=== PATIENT | female | born 1995 | race Caucasian/White ===

== ENCOUNTER 2016-10-15 02:57 | Emergency (ER) | payer MEDICAID ==
--- NOTE | 2016-10-15 04:02 | ER Document Report ---
ED GI/ - General Chief Complaint: Abdominal Cramping Stated Complaint: CRAMPING Mode of Arrival: Ambulatory Information source: Patient Notes: Patient is a 20-year-old female A1 approximately 9 weeks who presents to the ER today for abdominal cramping and lower abdomen, dizziness, lightheadedness and migraines 3 days. She denies any vaginal discharge, bleeding. She states that she is a high-risk because she had a stillbirth for her first . She has an appointment with her OB/ [facility] next week. TRAVEL OUTSIDE OF THE [place] IN LAST 30 DAYS: No - Related Data Allergies/Adverse Reactions: acetaminophen [From Percocet] Adverse Reaction (Mild, Verified 10/15/16 03:01) Nightmares oxycodone [From Percocet] Adverse Reaction (Mild, Verified 10/15/16 03:01) Nightmares Past Medical History - General Information source: Patient - Social History Smoking Status: Never Smoker Chew tobacco use (# tins/day): No Frequency of alcohol use: None Drug Abuse: None Family History: None Patient has suicidal ideation: No Patient has homicidal ideation: No Renal/ Medical History: Denies: Hx Peritoneal Dialysis Psychiatric Medical History: Denies: Hx Depression Past Surgical History: Reports: Hx Oral Surgery - wisdom teeth - Immunizations Immunizations up to date: Yes Hx Diphtheria, Pertussis, Tetanus Vaccination: Yes Review of Systems - Review of Systems Constitutional: No symptoms reported EENT: No symptoms reported Cardiovascular: No symptoms reported Respiratory: No symptoms reported Gastrointestinal: No symptoms reported Genitourinary: No symptoms reported Female Genitourinary: See HPI Musculoskeletal: No symptoms reported Skin: No symptoms reported Hematologic/Lymphatic: No symptoms reported Neurological/Psychological: See HPI Physical Exam - Vital signs Vitals: Temp Pulse Resp BP Pulse Ox 98.0 F 102 H 16 136/64 H 97 10/15/16 03:03 10/15/16 03:03 10/15/16 03:03 10/15/16 03:03 10/15/16 03:03 - Notes Notes: PHYSICAL EXAMINATION: GENERAL: Well-appearing and in no acute distress. HEAD: Atraumatic, normocephalic. EYES: Pupils equal round and reactive to light, extraocular movements intact, sclera anicteric, conjunctiva are normal. NECK: Normal range of motion, supple without lymphadenopathy LUNGS: CTAB and equal. No wheezes rales or rhonchi. HEART: Regular rate and rhythm without murmurs ABDOMEN: Soft, mild suprapubic tenderness. No guarding, no rebound BACK: no vertebral tenderness, normal ROM GI/: no CVA tenderness EXTREMITIES: Normal range of motion, no pitting edema. No cyanosis. NEUROLOGICAL: Cranial nerves grossly intact. Normal sensory/motor exams. PSYCH: Normal mood, normal affect. SKIN: Warm, Dry, normal turgor, no rashes or lesions noted Course - Re-evaluation Re-evalutation: 10/15/16 06:13 Patient's labwork is unremarkable today except for an elevated white blood cell count 16. I do not have any explanation for this as patient is afebrile with normal urinalysis, no sick symptoms such as cough, runny nose, no tenderness to abdomen except for some mild suprapubic tenderness which she only verbalized, did not even wince when I pressed on her abdomen. She appears very well, smiling, laughing and conversing with me in the room. Ultrasound reveals a 9 week and 5 day gestation intrauterine living with a heart rate of 175 bpm. No subchorionic hemorrhage or abnormality is noted. Patient's hemoglobin is normal. I have no expiration for her dizziness or lightheadedness except that it can be normal in . She will follow-up with her primary care provider next week I have advised her to tell them about this. She is taking her vitamins. - Vital Signs Vital signs: Temp Pulse Resp BP Pulse Ox 98.0 F 102 H 16 136/64 H 97 10/15/16 03:03 10/15/16 03:03 10/15/16 03:03 10/15/16 03:03 10/15/16 03:03 - Laboratory Result Diagrams: 10/15/16 04:00 10/15/16 04:00 Laboratory results interpreted by me: 10/15/16 10/15/16 04:00 04:00 WBC 16.0 H RDW 14.2 H Seg Neutrophils % 81.5 H Absolute Neutrophils 13.0 H Beta HCG, Quant 172182.00 H Discharge - Discharge Clinical Impression: Abdominal cramping affecting , Lightheadedness Condition: Stable Disposition: HOME, SELF-CARE Additional Instructions: Abdominal cramping, lightheadedness and dizziness and even headaches are all normal symptoms in . Please drink plenty of water and if you can purchase a blood pressure cuff to monitor your blood pressure at home. Blood pressure should not go below 100 as the top number, otherwise this may be causing your dizziness, lightheadedness. Take tylenol for the headaches. Return immediately for any new or worsening symptoms. Follow up with [facility], call tomorrow to make followup appointment. Referrals: [facility] [Provider Group] - Follow up as needed
[2016-10-15 04:26] LABS: APPEARANCE,URINE SLIGHTLY-CLOUDY; BILIRUBIN,URINE NEGATIVE (NEGATIVE); GLUCOSE, URINE NEGATIVE (NEGATIVE); KETONES,URINE NEGATIVE (NEGATIVE); LEUKOCYTE ESTERASE,URINE NEGATIVE (NEGATIVE); NITRITE,URINE NEGATIVE (NEGATIVE); PROTEIN,URINE NEGATIVE (NEGATIVE); URINE SPECIFIC GRAVITY 1.019; UROBILINOGEN,URINE NEGATIVE mg/dL (<2.0)
[2016-10-15 04:28] LABS: ABSOLUTE EOSINOPHILS # (AUTO) 0.1 10^3/uL (0.0-0.6); ABSOLUTE LYMPHOCYTES (AUTO) 2.1 10^3/uL (0.5-4.7); ABSOLUTE MONOCYTES (AUTO) 0.7 10^3/uL (0.1-1.4); BASOPHILS % (AUTO) 0.2 % (0-2); EOSINOPHILS % (AUTO) 0.6 % (0-6); HEMATOCRIT 37.3 % (36.0-47.0); HEMOGLOBIN 12.5 g/dL (12.0-15.5); HGB HCT DIFFERENCE 0.2; MEAN CORPUSCULAR HEMOGLOBIN 29.9 pg (27.0-33.4); MEAN CORPUSCULAR HGB CONC 33.5 g/dL (32.0-36.0); MEAN CORPUSCULAR VOLUME 89 fl (80-97); MONOCYTES % (AUTO) 4.7 % (3-13); RED BLOOD COUNT 4.17 10^6/uL (3.72-5.28); RED CELL DISTRIBUTION WIDTH 14.2 % (11.5-14.0); SEGMENTED NEUTROPHILS % (AUTO) 81.5 % (42-78)
[2016-10-15 04:35] LABS: ALANINE AMINOTRANSFERASE 22 U/L (5-35); ALBUMIN 4.2 g/dL (3.7-5.6); ALKALINE PHOSPHATASE 66 U/L (50-135); ANION GAP 12 (5-19); ASPARTATE AMINO TRANSFERASE 18 U/L (5-30); BILIRUBIN,TOTAL 0.3 mg/dL (0.2-1.3); BLOOD UREA NITROGEN 10 mg/dL (7-20); CALCIUM 9.3 mg/dL (8.4-10.2); CARBON DIOXIDE 24 mmol/L (22-30); CHLORIDE 104 mmol/L (98-107); CREATININE RESULT 0.54 mg/dL (0.52-1.25); GLUCOSE 93 mg/dL (75-110); POTASSIUM 3.7 mmol/L (3.6-5.0); SODIUM 139.6 mmol/L (137-145)
[2016-10-15 06:31] VITALS: BP 122/63
== END 2016-10-15 06:29 | disposition home or self-care (01) ==
LOC: ER 02:57
DX: O26.91 Pregnancy related conditions, unspecified, first trimester (principal); R42 Dizziness and giddiness; R10.30 Lower abdominal pain, unspecified; G43.909 Migraine, unspecified, not intractable, without status migrainosus; Z3A.09 9 weeks gestation of pregnancy; Z88.6 Allergy status to analgesic agent
CPT/HCPCS: 36415; 76801; 80053; 81001; 84702; 85025; 99284

== ENCOUNTER 2016-11-03 12:35 | Emergency (ER) | payer MEDICAID ==
--- NOTE | 2016-11-03 12:40 | ER Document Report ---
ED Medical Screen (RME) - General Stated Complaint: FEVER/VOMITING Notes: patient is a 20 year old female who is 12 weeks complaining of fever, vomiting, dizzyness and syncope blood type unknown denies vaginal bleeding, admits to minor abdominal cramping mild tachy at 116, normotensive, afebrile (did not take any apap today) I have greeted and performed a rapid initial assessment of this patient. A comprehensive ED assessment and evaluation of the patient, analysis of test results and completion of the medical decision making process will be conducted by additional ED providers. TRAVEL OUTSIDE OF THE [place] IN LAST 30 DAYS: No - Related Data Allergies/Adverse Reactions: acetaminophen [From Percocet] Adverse Reaction (Mild, Verified 10/15/16 03:01) Nightmares oxycodone [From Percocet] Adverse Reaction (Mild, Verified 10/15/16 03:01) Nightmares Past Medical History Renal/ Medical History: Denies: Hx Peritoneal Dialysis Psychiatric Medical History: Denies: Hx Depression Past Surgical History: Reports: Hx Oral Surgery - wisdom teeth - Immunizations Immunizations up to date: Yes Hx Diphtheria, Pertussis, Tetanus Vaccination: Yes
[2016-11-03 13:08] LABS: ABSOLUTE LYMPHOCYTES (AUTO) 0.3 10^3/uL (0.5-4.7); ABSOLUTE MONOCYTES (AUTO) 0.4 10^3/uL (0.1-1.4); ABSOLUTE NEUT (AUTO) 3.7 10^3/uL (1.7-8.2); BASOPHILS % (AUTO) 0.5 % (0-2); EOSINOPHILS % (AUTO) 0.2 % (0-6); HEMATOCRIT 35.2 % (36.0-47.0); HEMOGLOBIN 12.3 g/dL (12.0-15.5); HGB HCT DIFFERENCE 1.7; LYMPHOCYTES % (AUTO) 6.4 % (13-45); MEAN CORPUSCULAR HEMOGLOBIN 30.8 pg (27.0-33.4); MEAN CORPUSCULAR HGB CONC 34.9 g/dL (32.0-36.0); MEAN CORPUSCULAR VOLUME 88 fl (80-97); MONOCYTES % (AUTO) 9.6 % (3-13); RED BLOOD COUNT 3.99 10^6/uL (3.72-5.28); RED CELL DISTRIBUTION WIDTH 14.3 % (11.5-14.0); SEGMENTED NEUTROPHILS % (AUTO) 83.3 % (42-78); WHITE BLOOD COUNT 4.5 10^3/uL (4.0-10.5)
[2016-11-03 13:13] LABS: APPEARANCE,URINE SLIGHTLY-CLOUDY; BILIRUBIN,URINE NEGATIVE (NEGATIVE); GLUCOSE, URINE NEGATIVE (NEGATIVE); KETONES,URINE 80 mg/dL (NEGATIVE); LEUKOCYTE ESTERASE,URINE NEGATIVE (NEGATIVE); NITRITE,URINE NEGATIVE (NEGATIVE); PROTEIN,URINE 30 mg/dL (NEGATIVE); URINE SPECIFIC GRAVITY 1.025; UROBILINOGEN,URINE NEGATIVE mg/dL (<2.0)
--- NOTE | 2016-11-03 13:20 | EKG REPORT ---
SEVERITY:- NORMAL ECG - SINUS RHYTHM : Confirmed by: August Razo MD 03-Nov-2016 13:20:09
[2016-11-03 13:33] LABS: ALANINE AMINOTRANSFERASE 30 U/L (5-35); ALBUMIN 4.2 g/dL (3.7-5.6); ALKALINE PHOSPHATASE 61 U/L (50-135); ANION GAP 12 (5-19); ASPARTATE AMINO TRANSFERASE 22 U/L (5-30); BILIRUBIN,TOTAL 0.4 mg/dL (0.2-1.3); BLOOD UREA NITROGEN 7 mg/dL (7-20); CALCIUM 9.5 mg/dL (8.4-10.2); CARBON DIOXIDE 21 mmol/L (22-30); CHLORIDE 103 mmol/L (98-107); CREATININE RESULT 0.52 mg/dL (0.52-1.25); GLUCOSE 87 mg/dL (75-110); POTASSIUM 4.5 mmol/L (3.6-5.0); SODIUM 135.9 mmol/L (137-145); TOTAL PROTEIN 7.3 g/dL (6.3-8.2)
[2016-11-03] MEDS ORDERED: NORMAL SALINE 1000 ML 1,000 ML IV ONE (14:26)
--- NOTE | 2016-11-03 14:26 | ER Document Report ---
ED GI/ - General Time seen by provider: 15:00 Mode of Arrival: Ambulatory Information source: Patient TRAVEL OUTSIDE OF THE [place] IN LAST 30 DAYS: No - HPI Patient complains to provider of: Abdominal pain, Vomiting Onset: Other - see HPI note Quality of pain: Cramping Associated symptoms: Fever, Vomiting, Other - cough <MARJORIE GALVAN - Last Filed: 11/03/16 16:50> <ANNAMARIA PROCTOR - Last Filed: 11/03/16 22:57> - General Chief Complaint: Nausea/Vomiting Stated Complaint: FEVER/VOMITING Notes: Patient is a 20-year-old female presenting emergency department with complaints of vomiting, fever, and cough. Patient is approximately 12 weeks . Patient states that she is vomiting every time she coughs deeply. Patient has some slight abdominal cramping but no vaginal bleeding. Patient states that she is hungry but cannot keep anything down due to her vomiting. Patient states that she had a fever of 102.3 F and also states that she "passed out at work yesterday." Patient states that she smokes occasionally but has not recently. Patient also states that she was told she had asthma when she was 14 but has not had any major complications with this. Patient is allergic to acetaminophen and oxycodone. (MARJORIE GALVAN) - Related Data Allergies/Adverse Reactions: acetaminophen [From Percocet] Adverse Reaction (Mild, Verified 11/03/16 12:38) Nightmares oxycodone [From Percocet] Adverse Reaction (Mild, Verified 11/03/16 12:38) Nightmares Past Medical History - General Information source: Patient - Social History Smoking Status: Current Some Day Smoker Chew tobacco use (# tins/day): No Frequency of alcohol use: None Drug Abuse: None Family History: None Patient has suicidal ideation: No Patient has homicidal ideation: No Past Surgical History: Reports: Hx Oral Surgery - wisdom teeth - Immunizations Immunizations up to date: Yes Hx Diphtheria, Pertussis, Tetanus Vaccination: Yes <MARJORIE GALVAN - Last Filed: 11/03/16 16:50> Review of Systems - Review of Systems Constitutional: See HPI, Fever, Malaise EENT: No symptoms reported Cardiovascular: See HPI, Lightheaded Respiratory: See HPI, Cough, Wheezing Gastrointestinal: See HPI, Nausea, Vomiting Genitourinary: No symptoms reported Female Genitourinary: No symptoms reported. denies: Vaginal bleeding Musculoskeletal: No symptoms reported Skin: No symptoms reported Hematologic/Lymphatic: No symptoms reported Neurological/Psychological: No symptoms reported -: Yes All other systems reviewed and negative <MARJORIE GALVAN - Last Filed: 11/03/16 16:50> Physical Exam - Vital signs Interpretation: Normal - General General appearance: Appears well, Alert In distress: Mild - HEENT Head: Normocephalic, Atraumatic Eyes: Normal Pupils: PERRL Mucous membranes: Moist - Respiratory Respiratory status: No respiratory distress Chest status: Nontender Breath sounds: Nonproductive cough, Wheezing - Wheezing with forced expiration or cough Chest palpation: Normal - Cardiovascular Rhythm: Regular Heart sounds: Normal auscultation Murmur: No - Abdominal Inspection: Normal Distension: No distension Bowel sounds: Normal Tenderness: Nontender Organomegaly: No organomegaly - Back Back: Normal, Nontender - Extremities General upper extremity: Normal inspection, Normal ROM, Normal strength General lower extremity: Normal inspection, Normal ROM, Normal strength - Neurological Neuro grossly intact: Yes Cognition: Normal Orientation: AAOx4 Juan Coma Scale Eye Opening: Spontaneous Juan Coma Scale Verbal: Oriented Juan Coma Scale Motor: Obeys Commands Juan Coma Scale Total: 15 Speech: Normal - Psychological Associated symptoms: Normal affect, Normal mood - Skin Skin Temperature: Warm Skin Moisture: Dry <MARJORIE GALVAN - Last Filed: 11/03/16 16:50> <ANNAMARIA PROCTOR - Last Filed: 11/03/16 22:57> - Vital signs Vitals: Temp Pulse Resp BP Pulse Ox 98.9 F 116 H 16 118/70 98 11/03/16 12:39 11/03/16 12:39 11/03/16 12:39 11/03/16 12:39 11/03/16 12:39 (MARJORIE GALVAN) (ANNAMARIA PROCTOR) Course - Laboratory Result Diagrams: 11/03/16 12:55 11/03/16 12:55 <MARJORIE GALVAN - Last Filed: 11/03/16 16:50> - Laboratory Result Diagrams: 11/03/16 12:55 11/03/16 12:55 - Diagnostic Test Radiology reviewed: Reports reviewed <ANNAMARIA PROCTOR - Last Filed: 11/03/16 22:57> - Re-evaluation Re-evalutation: 11/03/16 Patient with bronchospasm. Improved after nebulizer treatment and steroids. No acute findings on chest x-ray or blood work. Patient appears well. Ultrasound showing a 12 week . Patient is tolerating by mouth and feels much better. Stable for discharge home. Follow-up with [facility]. Return if any worsening or concerning symptoms. Understands agrees with plan. ( ANNAMARIA PROCTOR) - Vital Signs Vital signs: Temp Pulse Resp BP Pulse Ox 99.3 F 96 H 18 106/50 L 96 11/03/16 17:03 11/03/16 17:03 11/03/16 17:03 11/03/16 17:03 11/03/16 17:03 (MARJORIE GALVAN) (ANNAMARIA PROCTOR) - Laboratory Laboratory results interpreted by me: 11/03/16 11/03/16 11/03/16 12:55 12:55 13:00 Hct 35.2 L RDW 14.3 H Seg Neutrophils % 83.3 H Lymphocytes % 6.4 L Absolute Lymphocytes 0.3 L Sodium 135.9 L Carbon Dioxide 21 L Beta HCG, Quant 62750.00 H Urine Protein 30 H Urine Ketones 80 H (MARJORIE GALVAN) (ANNAMARIA PROCTOR) Discharge <MARJORIE GALVAN - Last Filed: 11/03/16 16:50> <ANNAMARIA PROCTOR - Last Filed: 11/03/16 22:57> - Discharge Clinical Impression: Bronchospasm Nausea and vomiting Qualifiers: Vomiting type: unspecified Vomiting Intractability: non-intractable Qualified Code(s): R11.2 - Nausea with vomiting, unspecified Upper respiratory infection Qualifiers: URI type: unspecified URI Qualified Code(s): J06.9 - Acute upper respiratory infection, unspecified Qualifiers: Weeks of gestation: 12 weeks Qualified Code(s): Z3A.12 - 12 weeks gestation of Condition: Stable Disposition: HOME, SELF-CARE Instructions: Upper Respiratory Illness ([facility]), Vomiting ([facility]) Prescriptions: Albuterol Sulfate [Proair HFA Inhalation Aerosol 8.5 gm MDI] 2 puff IH Q4H PRN # 1 mdi PRN Reason: Prednisone [Deltasone 20 mg Tablet] 1 tab PO DAILY 4 Days Forms: Smoking Cessation Education, Return to Work Referrals: DECLAN BOBO MD [Primary Care Provider] - Follow up as needed Scribe Attestation: 11/03/16 22:57 I personally performed the services described in the documentation, reviewed and edited the documentation which was dictated to the scribe in my presence, and it accurately records my words and actions. (ANNAMARIA PROCTOR) Scribe Documentation - Scribe Written by [employer]:: Marjorie Galvan 11/03/16 16:22 acting as scribe for :: Evangelina <MARJORIE GALVAN - Last Filed: 11/03/16 16:50>
[2016-11-03] MEDS ORDERED: FAMOTIDINE INJ/PF 20 MG/2 ML SDV IV ONE (15:05)
[2016-11-03] MEDS ORDERED: METOCLOPRAMIDE HCL INJ/PF 10 MG/2 ML SDV IV ONE (15:05)
[2016-11-03] MEDS ORDERED: METHYLPREDNISOLONE INJ 125 MG/2 ML SDV IV ONE (15:06)
[2016-11-03] MEDS ORDERED: RINGERS SOLUTION,LACTATED 1,000 ML IV ONE (15:40)
[2016-11-03] MEDS ORDERED: ALBUTEROL SULFATE HFA (90 MCG/PUFF) 8 GM MDI (1 MDI/ER DISP) IH ONE (16:23)
[2016-11-03 17:04] VITALS: BP 106/50
== END 2016-11-03 17:04 | disposition home or self-care (01) ==
LOC: ER 12:35
DX: O26.891 Other specified pregnancy related conditions, first trimester (principal); J06.9 Acute upper respiratory infection, unspecified; J98.01 Acute bronchospasm; O21.9 Vomiting of pregnancy, unspecified; Z3A.12 12 weeks gestation of pregnancy; Z88.6 Allergy status to analgesic agent
CPT/HCPCS: 93005; 99284; 96374; 96375; 86900; 86901; 36415; 84702; 85025; 80053; 81001; 87804; 71020; 76801; 93010; J2930; J2765; J7030; S0028; J3490

== ENCOUNTER 2016-12-28 18:28 | Emergency (ER) | payer MEDICAID ==
[2016-12-28] MEDS ORDERED: ONDANSETRON 4 MG TAB.RAPDIS PO ONE (18:48)
[2016-12-28] MEDS ORDERED: DIPHENHYDRAMINE HCL 50 MG CAPSULE PO ONE (18:48)
[2016-12-28] MEDS ORDERED: PROCHLORPERAZINE MALEATE 10 MG TABLET PO ONE (18:48)
[2016-12-28] MEDS ORDERED: METOCLOPRAMIDE HCL 10 MG TABLET PO ONE (18:50)
--- NOTE | 2016-12-28 18:50 | ER Document Report ---
ED Medical Screen (RME) - General Chief Complaint: Headache >24 hrs old Stated Complaint: FLU LIKE SYMPTOMS Notes: This 21-year-old female patient comes emergency room with a 5 day history of bitemporal and forehead headache. She has had some nausea and vomiting for the past 2 days. She has also had some coughing the past 2 days. Her blood pressure is little elevated today, she reports it has been high throughout the and they are watching it but have not started to treat it. I have greeted and performed a rapid initial assessment of this patient. A comprehensive ED assessment and evaluation of the patient, analysis of test results and completion of the medical decision making process will be conducted by additional ED providers. TRAVEL OUTSIDE OF THE [place] IN LAST 30 DAYS: No - Related Data Allergies/Adverse Reactions: acetaminophen [From Percocet] Adverse Reaction (Mild, Verified 12/28/16 18:30) Nightmares oxycodone [From Percocet] Adverse Reaction (Mild, Verified 12/28/16 18:30) Nightmares Past Medical History Renal/ Medical History: Denies: Hx Peritoneal Dialysis Psychiatric Medical History: Denies: Hx Depression Past Surgical History: Reports: Hx Oral Surgery - wisdom teeth - Immunizations Immunizations up to date: Yes Hx Diphtheria, Pertussis, Tetanus Vaccination: Yes Physical Exam - Vital signs Vitals: Temp Pulse Resp BP Pulse Ox 98.9 F 116 H 16 140/79 H 99 12/28/16 18:33 12/28/16 18:33 12/28/16 18:33 12/28/16 18:33 12/28/16 18:33 Course - Vital Signs Vital signs: Temp Pulse Resp BP Pulse Ox 98.9 F 116 H 16 140/79 H 99 12/28/16 18:33 12/28/16 18:33 12/28/16 18:33 12/28/16 18:33 12/28/16 18:33
[2016-12-28] MEDS ORDERED: NORMAL SALINE 1000 ML 1,000 ML IV ONE (19:16)
[2016-12-28 19:20] LABS: AMORPHOUS SEDIMENT,URINE TRACE /HPF; APPEARANCE,URINE CLOUDY; BILIRUBIN,URINE NEGATIVE (NEGATIVE); GLUCOSE, URINE NEGATIVE (NEGATIVE); KETONES,URINE NEGATIVE (NEGATIVE); LEUKOCYTE ESTERASE,URINE NEGATIVE (NEGATIVE); NITRITE,URINE NEGATIVE (NEGATIVE); PROTEIN,URINE NEGATIVE (NEGATIVE); URINE SPECIFIC GRAVITY 1.016; UROBILINOGEN,URINE NEGATIVE mg/dL (<2.0)
--- NOTE | 2016-12-28 19:34 | ER Document Report ---
ED General - General Chief Complaint: Headache >24 hrs old Stated Complaint: FLU LIKE SYMPTOMS Mode of Arrival: Ambulatory Information source: Patient Notes: 21 y/o F presents to ED c/o intermittently persistent headaches and n/v over the last 5 days. Pt states is approximately 22 weeks , SA1. Pt describes headache as squeezing tightness to bilateral temporal area. Reports pain seems to be improved temporarily after sleeping and when her rubs her temporal area but pain returns. Reports associated photophobia and seeing spots bilaterally as well as left facial tingling. Also states has had nausea and vomiting when headache is at its worse. has had cough and congestion over the last 3 days. Jasmina is followed by [facility] due to miscarriage at 17 weeks with first and high blood pressure which she states is being monitored for. Reports today's reading of 140/79 is lower than her usual. Last OB appointment was 2 weeks ago and has follow-up appointment in 2 weeks. saw her pcp this morning who referred her to ED due to persistent headaches. Denies fever, chest pain, sob, blood in emesis or stool, vaginal bleeding or discharge, dysuria, abd/pelvic pain. TRAVEL OUTSIDE OF THE [place] IN LAST 30 DAYS: No - HPI Onset/Duration: Intermittent, Persistent Severity: Mild Pain Level: 3 Similar symptoms previously: Yes Recently seen / treated by doctor: No - Related Data Allergies/Adverse Reactions: acetaminophen [From Percocet] Adverse Reaction (Mild, Verified 12/28/16 18:30) Nightmares oxycodone [From Percocet] Adverse Reaction (Mild, Verified 12/28/16 18:30) Nightmares Past Medical History - General Information source: Patient - Social History Smoking Status: Never Smoker Frequency of alcohol use: None Drug Abuse: None Lives with: Family Family History: None Patient has suicidal ideation: No Patient has homicidal ideation: No - Medical History Medical History: Negative Renal/ Medical History: Denies: Hx Peritoneal Dialysis Psychiatric Medical History: Denies: Hx Depression Past Surgical History: Reports: Hx Oral Surgery - wisdom teeth - Immunizations Immunizations up to date: Yes Hx Diphtheria, Pertussis, Tetanus Vaccination: Yes Review of Systems - Review of Systems Constitutional: No symptoms reported EENT: No symptoms reported Cardiovascular: No symptoms reported Respiratory: No symptoms reported Gastrointestinal: See HPI Genitourinary: No symptoms reported Female Genitourinary: No symptoms reported Musculoskeletal: No symptoms reported Skin: No symptoms reported Hematologic/Lymphatic: No symptoms reported Neurological/Psychological: See HPI -: Yes All other systems reviewed and negative Physical Exam - Vital signs Vitals: Temp Pulse Resp BP Pulse Ox 98.9 F 116 H 16 140/79 H 99 12/28/16 18:33 12/28/16 18:33 12/28/16 18:33 12/28/16 18:33 12/28/16 18:33 - General General appearance: Appears well, Alert In distress: None - HEENT Head: Normocephalic, Atraumatic Eyes: Normal Pupils: PERRL - Respiratory Respiratory status: No respiratory distress Chest status: Nontender Breath sounds: Normal - CTAB, Nonproductive cough. No: Rhonchi, Wheezing Chest palpation: Normal - Cardiovascular Rhythm: Regular Heart sounds: Normal auscultation Murmur: No Pulses: Normal: Radial Normal capillary refill: Yes - Abdominal Inspection: Normal, Gravid female Distension: No distension Bowel sounds: Normal Tenderness: Nontender Organomegaly: No organomegaly - Back Back: Normal, Nontender - Extremities General upper extremity: Normal inspection, Nontender, Normal color, Normal ROM , Normal strength, Normal temperature. No: Edema General lower extremity: Normal inspection, Nontender, Normal color, Normal ROM , Normal strength, Normal temperature, Normal weight bearing. No: Edema, Earl' s sign - Neurological Neuro grossly intact: Yes Cognition: Normal Orientation: AAOx4 Juan Coma Scale Eye Opening: Spontaneous [place] Coma Scale Verbal: Oriented [place] Coma Scale Motor: Obeys Commands [place] Coma Scale Total: 15 Speech: Normal Cranial nerves: Normal. No: Facial palsy, Sensory deficit Cerebellar coordination: Normal Motor strength normal: LUE, RUE, LLE, RLE Additional motor exam normals: Equal community outreach coordinator Sensory: Normal - Skin Skin Temperature: Warm Skin Moisture: Dry Skin Color: Normal Course - Re-evaluation Re-evalutation: 12/28/16 23:00 Patient hemodynamically stable, in no distress, afebrile, nontoxic, and neurologically intact. Patients BP on initial vital signs was 140/79 however on 2 subsequent checks BP was less than 120/80. No proteinuria. After dose of Reglan, Benadryl, Tylenol, and 1 L normal saline bolus patient states headache completely resolved. Patient tolerating oral fluids without difficulty or vomiting. Patient presentation and findings not suggestive of emergent neurovascular or infectious etiology at this time. Will treat for likely tension type/mild vascular headache at this time. Patient appears stable for discharge and agrees home care, follow-up, and ED return precautions. - Vital Signs Vital signs: Temp Pulse Resp BP Pulse Ox 98.3 F 81 18 109/64 98 12/28/16 23:28 12/28/16 23:28 12/28/16 23:28 12/28/16 23:28 12/28/16 23:28 Selected Entries 12/28/16 21:02 Temperature 98.1 F Pulse Rate 84 Respiratory 17 Rate Blood Pressure 117/60 O2 Sat by Pulse 97 Oximetry Discharge - Discharge Clinical Impression: Nausea and vomiting during Headache Qualifiers: Headache type: unspecified Headache chronicity pattern: episodic headache Intractability: not intractable Qualified Code(s): R51 - Headache Condition: Stable Disposition: HOME, SELF-CARE Instructions: Headache ([facility]), Reglan ([facility]), Use of Diphenhydramine, Nausea or Vomiting, Nonspecific ([facility]), Intravenous (IV) Fluids ([facility]) Additional Instructions: Drink plenty of fluids, at least 2 liters of water per day. Follow-up with your primary care provider and [facility]Behavioral Health Assistant this week. Return to the Emergency Department for any worsening symptoms or concerns. Prescriptions: Diphenhydramine HCl [Benadryl] 25 mg PO Q8HP PRN #10 capsule PRN Reason: Metoclopramide HCl [Reglan 10 mg Tablet] 10 mg PO Q8HP PRN #10 tablet PRN Reason: Forms: Elevated Blood Pressure Referrals: [facility] [Provider Group] - Follow up tomorrow
[2016-12-28] MEDS ORDERED: ACETAMINOPHEN 325 MG TABLET PO ONE (21:04)
[2016-12-28 23:29] VITALS: BP 109/64
== END 2016-12-28 23:30 | disposition home or self-care (01) ==
LOC: ER 18:28
DX: O21.2 Late vomiting of pregnancy (principal); R51 Headache; Z3A.22 22 weeks gestation of pregnancy; Z88.6 Allergy status to analgesic agent
CPT/HCPCS: 99284; 96360; 81001; J3490 ×3; S0119; J7030

== ENCOUNTER 2017-02-17 23:35 | Outpatient (CLI) | payer MEDICAID ==
[2017-02-18 02:02] LABS: APPEARANCE,URINE SLIGHTLY-CLOUDY; BILIRUBIN,URINE NEGATIVE (NEGATIVE); CALCIUM OXALATE CRYSTALS,URINE MODERATE /HPF; GLUCOSE, URINE NEGATIVE (NEGATIVE); KETONES,URINE NEGATIVE (NEGATIVE); LEUKOCYTE ESTERASE,URINE NEGATIVE (NEGATIVE); NITRITE,URINE NEGATIVE (NEGATIVE); PROTEIN,URINE NEGATIVE (NEGATIVE); URINE SPECIFIC GRAVITY 1.023; UROBILINOGEN,URINE NEGATIVE mg/dL (<2.0)
[2017-02-18 02:08] LABS: URINE BARBITURATES SCREEN NEGATIVE; URINE METHADONE SCREEN NEGATIVE; URINE OPIATES LOW NEGATIVE; URINE PHENCYCLIDINE SCREEN NEGATIVE
--- NOTE | 2017-02-18 02:31 | RADIOLOGY REPORT (SQ) ---
EXAM DESCRIPTION: U/S OB LIMITED COMPLETED DATE/TIME: 02/18/2017 1:22 am REASON FOR STUDY: cervical length, abd pain COMPARISON: None. TECHNIQUE: Limited transvaginal and transabdominal grayscale ultrasound for evaluation of specific r equested obstetrical parameters. LIMITATIONS: None. FINDINGS: CERVICAL LENGTH: 3.7 Closed. MARY: Not reported cm. FHR: 160 beats per minute. PRESENTATION: Breech OTHER: No other significant findings. IMPRESSION: LIMITED OBSTETRICAL ULTRASOUND WITH MEASURED PARAMETERS DELINEATED ABOVE. Trimester of : Second trimester - 13 weeks 1 day to 27 weeks 6 days. TECHNICAL DOCUMENTATION: JOB ID: [id number] [employer]- All Rights Reserved
== END 2017-02-18 01:54 | disposition home or self-care (01) ==
LOC: LC 23:35
PROVIDERS: ATTEND Obstetrics & Gynecology
PROC: 4A1HXCZ Monitoring of Products of Conception, Cardiac Rate, External Approach (ICD-10-PCS; principal; 2017-02-17)
DX: O26.892 Other specified pregnancy related conditions, second trimester (principal); R10.9 Unspecified abdominal pain; M54.9 Dorsalgia, unspecified; Z3A.27 27 weeks gestation of pregnancy
CPT/HCPCS: 76815; 80307; 81001

== ENCOUNTER 2017-02-19 17:11 | Outpatient (CLI) | payer MEDICAID ==
[2017-02-19 18:01] LABS: AMNISURE (ROM) NEGATIVE (NEGATIVE); APPEARANCE,URINE SLIGHTLY-CLOUDY; BILIRUBIN,URINE NEGATIVE (NEGATIVE); GLUCOSE, URINE NEGATIVE (NEGATIVE); KETONES,URINE NEGATIVE (NEGATIVE); LEUKOCYTE ESTERASE,URINE NEGATIVE (NEGATIVE); NITRITE,URINE NEGATIVE (NEGATIVE); PROTEIN,URINE NEGATIVE (NEGATIVE); URINE SPECIFIC GRAVITY 1.013; UROBILINOGEN,URINE NEGATIVE mg/dL (<2.0)
[2017-02-19] MEDS ORDERED: RINGERS SOLUTION,LACTATED 1,000 ML IV PRN (18:09)
[2017-02-19] MEDS ORDERED: FLUCONAZOLE 100 MG TABLET ONE (18:13)
[2017-02-19 18:23] LABS: URINE BARBITURATES SCREEN NEGATIVE; URINE METHADONE SCREEN NEGATIVE; URINE OPIATES LOW NEGATIVE; URINE PHENCYCLIDINE SCREEN NEGATIVE
[2017-02-20] MEDS ORDERED: FLUCONAZOLE 100 MG TABLET PO ONE (18:09)
== END 2017-02-19 18:52 | disposition home or self-care (01) ==
LOC: LC 17:11
PROVIDERS: ATTEND Obstetrics & Gynecology
PROC: 4A1HXCZ Monitoring of Products of Conception, Cardiac Rate, External Approach (ICD-10-PCS; principal; 2017-02-19)
DX: O47.02 False labor before 37 completed weeks of gestation, second trimester (principal); Z3A.27 27 weeks gestation of pregnancy
CPT/HCPCS: 59899; 84112; 81001; 80307; J3490

== ENCOUNTER 2017-03-02 21:58 | Outpatient (CLI) | payer MEDICAID ==
[2017-03-03 00:01] LABS: BILIRUBIN,URINE NEGATIVE (NEGATIVE); GLUCOSE, URINE NEGATIVE (NEGATIVE); KETONES,URINE NEGATIVE (NEGATIVE); PROTEIN,URINE NEGATIVE (NEGATIVE); URINE SPECIFIC GRAVITY 1.016; UROBILINOGEN,URINE NEGATIVE mg/dL (<2.0)
[2017-03-03 00:02] LABS: BACTERIA,URINE 1+ /HPF; LEUKOCYTE ESTERASE,URINE NEGATIVE (NEGATIVE); NITRITE,URINE NEGATIVE (NEGATIVE); RBC,URINE 0-1 /HPF
[2017-03-03 00:03] LABS: APPEARANCE,URINE SLIGHTLY-CLOUDY
[2017-03-03 00:11] LABS: URINE BARBITURATES SCREEN NEGATIVE; URINE METHADONE SCREEN NEGATIVE; URINE OPIATES LOW NEGATIVE; URINE PHENCYCLIDINE SCREEN NEGATIVE
== END 2017-03-02 23:29 | disposition home or self-care (01) ==
LOC: LC 21:58
PROVIDERS: ATTEND Obstetrics & Gynecology
PROC: 4A1HXCZ Monitoring of Products of Conception, Cardiac Rate, External Approach (ICD-10-PCS; principal; 2017-03-02)
DX: O47.03 False labor before 37 completed weeks of gestation, third trimester (principal); Z3A.29 29 weeks gestation of pregnancy
CPT/HCPCS: 80307; 81001

== ENCOUNTER 2017-03-12 20:43 | Outpatient (CLI) | payer MEDICAID ==
[2017-03-12 21:31] LABS: APPEARANCE,URINE CLEAR; BILIRUBIN,URINE NEGATIVE (NEGATIVE); GLUCOSE, URINE NEGATIVE (NEGATIVE); KETONES,URINE NEGATIVE (NEGATIVE); LEUKOCYTE ESTERASE,URINE NEGATIVE (NEGATIVE); NITRITE,URINE NEGATIVE (NEGATIVE); PROTEIN,URINE NEGATIVE (NEGATIVE); URINE SPECIFIC GRAVITY 1.025; UROBILINOGEN,URINE NEGATIVE mg/dL (<2.0)
[2017-03-12 21:37] LABS: AMNISURE (ROM) NEGATIVE (NEGATIVE)
[2017-03-12 21:42] LABS: URINE BARBITURATES SCREEN NEGATIVE; URINE METHADONE SCREEN NEGATIVE; URINE OPIATES LOW NEGATIVE; URINE PHENCYCLIDINE SCREEN NEGATIVE
== END 2017-03-12 22:42 | disposition home or self-care (01) ==
LOC: LC 20:43
PROVIDERS: ATTEND Specialist
PROC: 4A1HXCZ Monitoring of Products of Conception, Cardiac Rate, External Approach (ICD-10-PCS; principal; 2017-03-12)
DX: O47.03 False labor before 37 completed weeks of gestation, third trimester (principal); O36.8130 Decreased fetal movements, third trimester, not applicable or unspecified; Z3A.30 30 weeks gestation of pregnancy
CPT/HCPCS: 59025; 80307; 81001; 84112

== ENCOUNTER 2017-03-17 21:28 | Outpatient (CLI) | payer MEDICAID ==
[2017-03-17 22:25] LABS: APPEARANCE,URINE SLIGHTLY-CLOUDY; BILIRUBIN,URINE NEGATIVE (NEGATIVE); GLUCOSE, URINE NEGATIVE (NEGATIVE); KETONES,URINE 20 mg/dL (NEGATIVE); LEUKOCYTE ESTERASE,URINE NEGATIVE (NEGATIVE); NITRITE,URINE NEGATIVE (NEGATIVE); PROTEIN,URINE NEGATIVE (NEGATIVE); URINE SPECIFIC GRAVITY 1.015; UROBILINOGEN,URINE NEGATIVE mg/dL (<2.0)
[2017-03-17 22:36] LABS: BACTERIA,URINE 1+ /HPF
[2017-03-17 22:38] LABS: URINE BARBITURATES SCREEN NEGATIVE; URINE METHADONE SCREEN NEGATIVE; URINE OPIATES LOW NEGATIVE; URINE PHENCYCLIDINE SCREEN NEGATIVE
== END 2017-03-17 22:50 | disposition home or self-care (01) ==
LOC: LC 21:28
PROVIDERS: ATTEND Student in an Organized Health Care Education/Training Program
PROC: 4A1HXCZ Monitoring of Products of Conception, Cardiac Rate, External Approach (ICD-10-PCS; principal; 2017-03-17)
DX: Z34.93 Encounter for supervision of normal pregnancy, unspecified, third trimester (principal); Z36 Encounter for antenatal screening of mother; Z3A.31 31 weeks gestation of pregnancy
CPT/HCPCS: 80307; 81001

== ENCOUNTER 2017-04-02 13:29 | Outpatient (CLI) | payer MEDICAID ==
[2017-04-02 14:40] LABS: APPEARANCE,URINE SLIGHTLY-CLOUDY; BILIRUBIN,URINE NEGATIVE (NEGATIVE); GLUCOSE, URINE NEGATIVE (NEGATIVE); KETONES,URINE NEGATIVE (NEGATIVE); LEUKOCYTE ESTERASE,URINE NEGATIVE (NEGATIVE); NITRITE,URINE NEGATIVE (NEGATIVE); PROTEIN,URINE NEGATIVE (NEGATIVE); URINE SPECIFIC GRAVITY 1.018; UROBILINOGEN,URINE NEGATIVE mg/dL (<2.0)
[2017-04-02 14:43] LABS: URINE BARBITURATES SCREEN NEGATIVE; URINE METHADONE SCREEN NEGATIVE; URINE OPIATES LOW NEGATIVE; URINE PHENCYCLIDINE SCREEN NEGATIVE
[2017-04-02] MEDS ORDERED: HYDROXYZINE PAMOATE 50 MG CAPSULE ONE (14:46)
--- NOTE | 2017-04-02 15:14 | Non Stress Test Report ---
Non Stress Test Datetime Report Generated by CPN: 04/02/2017 15:14 DEMOGRAPHIC EGA NST: 33.3 INDICATION Indication for Study: Ordered by Provider Indication for Study (NST) Other: Labor Check MONITORING Monitor Explained: Monitor Explained; Test Explained; Patient Verbalized Understanding Time on Monitor: 04/02/2017 13:43 Time off Monitor: 04/02/2017 14:47 NST Duration: 64 NST INTERVENTIONS NST Interventions: PO Hydration; Reposition Patient Physician Notified NST: Dr. Jimbo BABY A: [id number] BABY A Movement : Present Contraction Frequency : 0 FHR Baseline : 145 Accelerations : 15X15 Decelerations : None Variability : Moderate 6-25bpm NST Review: Meets Criteria for Reactive NST NST Review and Verified By : Priscilla QUINONEZT Results: Reactive NST REPORT Report Trigger: Send Report
[2017-04-02] MEDS ORDERED: HYDROXYZINE PAMOATE 50 MG CAPSULE PO ONE (15:15)
== END 2017-04-02 15:15 | disposition home or self-care (01) ==
LOC: LC 13:29
PROVIDERS: ATTEND Obstetrics & Gynecology
PROC: 4A1HXCZ Monitoring of Products of Conception, Cardiac Rate, External Approach (ICD-10-PCS; principal; 2017-04-02)
DX: O99.89 Other specified diseases and conditions complicating pregnancy, childbirth and the puerperium (principal); M54.9 Dorsalgia, unspecified; Z3A.33 33 weeks gestation of pregnancy
CPT/HCPCS: 59025; 87210; 81001; 80307; J3490

== ENCOUNTER 2017-04-06 10:40 | Outpatient (CLI) | payer MEDICAID ==
[2017-04-06 11:21] LABS: APPEARANCE,URINE SLIGHTLY-CLOUDY; BILIRUBIN,URINE NEGATIVE (NEGATIVE); GLUCOSE, URINE NEGATIVE (NEGATIVE); KETONES,URINE NEGATIVE (NEGATIVE); LEUKOCYTE ESTERASE,URINE TRACE (NEGATIVE); NITRITE,URINE NEGATIVE (NEGATIVE); PROTEIN,URINE 30 mg/dL (NEGATIVE); UROBILINOGEN,URINE NEGATIVE mg/dL (<2.0)
[2017-04-06 11:34] LABS: URINE BARBITURATES SCREEN NEGATIVE; URINE METHADONE SCREEN NEGATIVE; URINE OPIATES LOW NEGATIVE; URINE PHENCYCLIDINE SCREEN NEGATIVE
[2017-04-06] MEDS ORDERED: PROCHLORPERAZINE MALEATE 10 MG TABLET ONE (11:40)
[2017-04-06] MEDS ORDERED: ACETAMINOPHEN 325 MG TABLET ONE (11:41)
--- NOTE | 2017-04-06 12:04 | Non Stress Test Report ---
Non Stress Test Datetime Report Generated by CPN: 04/06/2017 12:03 DEMOGRAPHIC EGA NST: 34.0 INDICATION Indication for Study: Ordered by Provider VITAL SIGNS Temperature - NST: 97.9 RESP - NST: 16 MONITORING Monitor Explained: Monitor Explained; Test Explained; Patient Verbalized Understanding Time on Monitor: 04/06/2017 10:55 Time off Monitor: 04/06/2017 12:00 NST Duration: 65 NST INTERVENTIONS NST Interventions: PO Hydration Physician Notified NST: A. Emmel, CNM BABY A: [id number] BABY A Movement : Present Contraction Frequency : none FHR Baseline : 140 Accelerations : 15X15 Decelerations : None Variability : Moderate 6-25bpm NST Review: Meets Criteria for Reactive NST NST Review and Verified By : Adithya Chandra [facility] NST Results: Reactive NST REPORT Report Trigger: Send Report
== END 2017-04-06 13:15 | disposition home or self-care (01) ==
LOC: LC 10:40
PROVIDERS: ATTEND Obstetrics & Gynecology
PROC: 4A1HXCZ Monitoring of Products of Conception, Cardiac Rate, External Approach (ICD-10-PCS; principal; 2017-04-06)
DX: O99.353 Diseases of the nervous system complicating pregnancy, third trimester (principal); G43.909 Migraine, unspecified, not intractable, without status migrainosus; Z3A.34 34 weeks gestation of pregnancy
CPT/HCPCS: 59025; 81001; 80307; J3490; S0183

== ENCOUNTER 2017-04-13 13:11 | Outpatient (CLI) | payer MEDICAID ==
[2017-04-13 14:03] LABS: APPEARANCE,URINE SLIGHTLY-CLOUDY; BILIRUBIN,URINE NEGATIVE (NEGATIVE); GLUCOSE, URINE NEGATIVE (NEGATIVE); KETONES,URINE NEGATIVE (NEGATIVE); LEUKOCYTE ESTERASE,URINE TRACE (NEGATIVE); NITRITE,URINE NEGATIVE (NEGATIVE); PROTEIN,URINE NEGATIVE (NEGATIVE); URINE SPECIFIC GRAVITY 1.014; UROBILINOGEN,URINE NEGATIVE mg/dL (<2.0)
[2017-04-13 14:17] LABS: URINE BARBITURATES SCREEN NEGATIVE; URINE METHADONE SCREEN NEGATIVE; URINE OPIATES LOW NEGATIVE; URINE PHENCYCLIDINE SCREEN NEGATIVE
--- NOTE | 2017-04-13 14:47 | Non Stress Test Report ---
Non Stress Test Datetime Report Generated by CPN: 04/13/2017 14:46 DEMOGRAPHIC EGA NST: 35.0 INDICATION Indication for Study: Decreased Movement Indication for Study (NST) Other: LC MONITORING Monitor Explained: Monitor Explained; Test Explained; Patient Verbalized Understanding Time on Monitor: 04/13/2017 13:42 NST INTERVENTIONS NST Interventions: None Physician Notified NST: Dr Wilkerson BABY A: [id number] BABY A Movement : Decreased Contraction Frequency : none FHR Baseline : 140 Accelerations : 15X15 Decelerations : None Variability : Moderate 6-25bpm NST Review: Meets Criteria for Reactive NST NST Review and Verified By : Shonna Camp [facility] NST Results: Reactive NST REPORT Report Trigger: Send Report
--- NOTE | 2017-04-13 16:21 | RADIOLOGY REPORT (SQ) ---
EXAM DESCRIPTION: U/S OB LIMITED COMPLETED DATE/TIME: 04/13/2017 4:07 pm REASON FOR STUDY: fell on belly COMPARISON: None. TECHNIQUE: Limited transabdominal grayscale ultrasound for evaluation of specific requested obstetri prince parameters. LIMITATIONS: None. FINDINGS: MARY: Largest pocket 6 cm. FHR: 136 beats per minute. PRESENTATION: Cephalic. OTHER: No other significant findings. IMPRESSION: LIMITED OBSTETRICAL ULTRASOUND WITH MEASURED PARAMETERS DELINEATED ABOVE. Trimester of : Third trimester - 28 weeks to delivery. TECHNICAL DOCUMENTATION: JOB ID: [id number] [employer]- All Rights Reserved
== END 2017-04-13 16:28 | disposition home or self-care (01) ==
LOC: LC 13:11
PROVIDERS: ATTEND Student in an Organized Health Care Education/Training Program
PROC: 4A1HXCZ Monitoring of Products of Conception, Cardiac Rate, External Approach (ICD-10-PCS; principal; 2017-04-13)
DX: O36.8130 Decreased fetal movements, third trimester, not applicable or unspecified (principal); Z3A.35 35 weeks gestation of pregnancy
CPT/HCPCS: 59025; 76815; 80307; 81001; 87086

== ENCOUNTER 2017-04-19 16:17 | Outpatient (CLI) | payer MEDICAID ==
[2017-04-19 16:55] LABS: AMNISURE (ROM) NEGATIVE (NEGATIVE)
[2017-04-19 17:02] LABS: AMORPHOUS SEDIMENT,URINE TRACE /HPF; APPEARANCE,URINE CLOUDY; BILIRUBIN,URINE NEGATIVE (NEGATIVE); GLUCOSE, URINE NEGATIVE (NEGATIVE); KETONES,URINE NEGATIVE (NEGATIVE); LEUKOCYTE ESTERASE,URINE NEGATIVE (NEGATIVE); NITRITE,URINE NEGATIVE (NEGATIVE); PROTEIN,URINE NEGATIVE (NEGATIVE); URINE SPECIFIC GRAVITY 1.018; UROBILINOGEN,URINE NEGATIVE mg/dL (<2.0)
[2017-04-19 17:12] LABS: URINE BARBITURATES SCREEN NEGATIVE; URINE METHADONE SCREEN NEGATIVE; URINE OPIATES LOW NEGATIVE; URINE PHENCYCLIDINE SCREEN NEGATIVE
--- NOTE | 2017-04-19 17:29 | Non Stress Test Report ---
Non Stress Test Datetime Report Generated by CPN: 04/19/2017 17:29 DEMOGRAPHIC Test Number: 1 EGA NST: 35.6 INDICATION Indication for Study: Ordered by Provider Indication for Study (NST) Other: LC MONITORING Monitor Explained: Monitor Explained; Test Explained; Patient Verbalized Understanding Time on Monitor: 04/19/2017 16:37 Time off Monitor: 04/19/2017 17:12 NST Duration: 35 NST INTERVENTIONS NST Interventions: PO Hydration Physician Notified NST: [place] BABY A: [id number] BABY A Movement : Present Contraction Frequency : 0 FHR Baseline : 150 Accelerations : 15X15 Decelerations : None Variability : Moderate 6-25bpm NST Review: Meets Criteria for Reactive NST NST Review and Verified By : Maya Galvez RN NST Results: Reactive NST REPORT Report Trigger: Send Report
== END 2017-04-19 18:47 | disposition home or self-care (01) ==
LOC: LC 16:17
PROVIDERS: ATTEND Student in an Organized Health Care Education/Training Program
PROC: 4A1HXCZ Monitoring of Products of Conception, Cardiac Rate, External Approach (ICD-10-PCS; principal; 2017-04-19)
DX: O47.03 False labor before 37 completed weeks of gestation, third trimester (principal); Z3A.35 35 weeks gestation of pregnancy
CPT/HCPCS: 59025; 80307; 81001; 84112

== ENCOUNTER 2017-04-22 00:56 | Outpatient (CLI) | payer MEDICAID ==
[2017-04-22 01:39] LABS: AMORPHOUS SEDIMENT,URINE 1+ /HPF; APPEARANCE,URINE CLOUDY; BILIRUBIN,URINE NEGATIVE (NEGATIVE); GLUCOSE, URINE NEGATIVE (NEGATIVE); KETONES,URINE NEGATIVE (NEGATIVE); LEUKOCYTE ESTERASE,URINE TRACE (NEGATIVE); NITRITE,URINE NEGATIVE (NEGATIVE); PROTEIN,URINE NEGATIVE (NEGATIVE); URINE SPECIFIC GRAVITY 1.017; UROBILINOGEN,URINE NEGATIVE mg/dL (<2.0)
[2017-04-22 02:19] LABS: URINE BARBITURATES SCREEN NEGATIVE; URINE METHADONE SCREEN NEGATIVE; URINE OPIATES LOW NEGATIVE; URINE PHENCYCLIDINE SCREEN NEGATIVE
== END 2017-04-22 02:17 | disposition home or self-care (01) ==
LOC: LC 00:56
PROVIDERS: ATTEND Specialist
DX: O60.03 Preterm labor without delivery, third trimester (principal); Z3A.36 36 weeks gestation of pregnancy; F17.210 Nicotine dependence, cigarettes, uncomplicated
CPT/HCPCS: 59025; 80307; 81001

== ENCOUNTER 2017-04-24 13:01 | Outpatient (CLI) | payer MEDICAID ==
--- NOTE | 2017-04-24 14:47 | RADIOLOGY REPORT (SQ) ---
EXAM DESCRIPTION: U/S OB LIMITED COMPLETED DATE/TIME: 04/24/2017 2:34 pm REASON FOR STUDY: s/p fall; r/o placental abruption COMPARISON: 04/13/2017. TECHNIQUE: Limited transabdominal grayscale ultrasound for evaluation of specific requested obstetri prince parameters. LIMITATIONS: None. FINDINGS: PLACENTA: Anterior. No previa or abruption. MARY: 8.3 cm. FHR: 158 beats per minute. PRESENTATION: Cephalic. EGA: 37 weeks. NICKY: 05/15/2017. EFW: 3139 g. PERCENTILE: 52%. OTHER: No other significant findings. IMPRESSION: LIMITED OBSTETRICAL ULTRASOUND WITH MEASURED PARAMETERS DELINEATED ABOVE. Trimester of : Third trimester - 28 weeks to delivery. TECHNICAL DOCUMENTATION: JOB ID: [id number] [employer]- All Rights Reserved
[2017-04-24 15:58] LABS: APPEARANCE,URINE SLIGHTLY-CLOUDY; BILIRUBIN,URINE NEGATIVE (NEGATIVE); GLUCOSE, URINE NEGATIVE (NEGATIVE); KETONES,URINE NEGATIVE (NEGATIVE); LEUKOCYTE ESTERASE,URINE NEGATIVE (NEGATIVE); NITRITE,URINE NEGATIVE (NEGATIVE); PROTEIN,URINE NEGATIVE (NEGATIVE); URINE SPECIFIC GRAVITY 1.013; UROBILINOGEN,URINE NEGATIVE mg/dL (<2.0)
[2017-04-24 16:14] LABS: URINE BARBITURATES SCREEN NEGATIVE; URINE METHADONE SCREEN NEGATIVE; URINE OPIATES LOW NEGATIVE; URINE PHENCYCLIDINE SCREEN NEGATIVE
--- NOTE | 2017-04-24 16:31 | Non Stress Test Report ---
Non Stress Test Datetime Report Generated by CPN: 04/24/2017 16:31 DEMOGRAPHIC EGA NST: 36.4 EGA NST: 36.2 INDICATION Indication for Study: Ordered by Provider Indication for Study: Ordered by Provider Indication for Study (NST) Other: LC URINE RESULTS Urine Protein, NST: Negative Urine Ketones - NST: Negative Urine Glucose - NST: Negative Urine Blood - NST: Negative MONITORING Monitor Explained: Monitor Explained; Test Explained; Patient Verbalized Understanding Time on Monitor: 04/24/2017 13:21 Time on Monitor: 04/22/2017 01:25 Time off Monitor: 04/24/2017 15:48 Time off Monitor: 04/22/2017 02:05 NST Duration: 147 NST Duration: 40 NST INTERVENTIONS NST Interventions: None NST Interventions: PO Hydration; Other NST Interventions Other: popsicle Physician Notified NST: [id number]]] BABY A: [id number] BABY A Movement : Present Movement : Present Contraction Frequency : none Contraction Frequency : none FHR Baseline : 140 FHR Baseline : 140 Accelerations : 15X15 Accelerations : 15X15 Decelerations : None Decelerations : None Variability : Moderate 6-25bpm Variability : Moderate 6-25bpm NST Review: Meets Criteria for Reactive NST NST Review: Meets Criteria for Reactive NST NST Review and Verified By : ELISEO MALDONADO RN NST Results: Reactive NST Results: Reactive NST REPORT Report Trigger: Send Report
== END 2017-04-24 15:50 | disposition home or self-care (01) ==
LOC: LC 13:01
PROVIDERS: ATTEND Student in an Organized Health Care Education/Training Program
PROC: 4A1HXCZ Monitoring of Products of Conception, Cardiac Rate, External Approach (ICD-10-PCS; principal; 2017-04-24)
DX: O36.8130 Decreased fetal movements, third trimester, not applicable or unspecified (principal); O99.89 Other specified diseases and conditions complicating pregnancy, childbirth and the puerperium; M25.571 Pain in right ankle and joints of right foot; W19.XXXA Unspecified fall, initial encounter; Z3A.37 37 weeks gestation of pregnancy
CPT/HCPCS: 59025; 76815; 80307; 81005

== ENCOUNTER 2017-04-24 16:04 | Emergency (ER) | payer MEDICAID | END 2017-04-24 16:09 | disposition left against medical advice (07) | LOC: ER 16:04 | DX: Z53.9 Procedure and treatment not carried out, unspecified reason (principal); M79.673 Pain in unspecified foot ==

== ENCOUNTER 2017-05-01 19:15 | Outpatient (CLI) | payer MEDICAID ==
[2017-05-01 19:46] LABS: APPEARANCE,URINE CLOUDY; BILIRUBIN,URINE NEGATIVE (NEGATIVE); GLUCOSE, URINE NEGATIVE (NEGATIVE); KETONES,URINE NEGATIVE (NEGATIVE); LEUKOCYTE ESTERASE,URINE LARGE (NEGATIVE); NITRITE,URINE NEGATIVE (NEGATIVE); PROTEIN,URINE 30 mg/dL (NEGATIVE); URINE SPECIFIC GRAVITY 1.012; UROBILINOGEN,URINE NEGATIVE mg/dL (<2.0)
[2017-05-01 20:01] LABS: URINE BARBITURATES SCREEN NEGATIVE; URINE METHADONE SCREEN NEGATIVE; URINE OPIATES LOW NEGATIVE; URINE PHENCYCLIDINE SCREEN NEGATIVE
[2017-05-01] MEDS ORDERED: PROMETHAZINE HCL 25 MG TABLET ONE (20:10)
[2017-05-01] MEDS ORDERED: PROMETHAZINE HCL INJ 25 MG/1 ML VIAL IV ONE (20:26)
[2017-05-01] MEDS ORDERED: PROMETHAZINE HCL INJ 25 MG/1 ML VIAL ONE (20:32)
== END 2017-05-01 20:41 | disposition home or self-care (01) ==
LOC: LC 19:15
PROVIDERS: ATTEND Specialist
DX: O47.1 False labor at or after 37 completed weeks of gestation (principal); Z3A.37 37 weeks gestation of pregnancy
CPT/HCPCS: 59025; 81005; 80307; J2550

== ENCOUNTER 2017-05-10 23:24 | Outpatient (CLI) | payer MEDICAID ==
--- NOTE | 2017-05-10 23:27 | Non Stress Test Report ---
Non Stress Test Datetime Report Generated by CPN: 05/10/2017 23:26 DEMOGRAPHIC EGA NST: 37.4 INDICATION Indication for Study: Ordered by Provider VITAL SIGNS Temperature - NST: 97.5 Pulse - NST: 95 RESP - NST: 14 NBPSYS NST: 113 NBPDIA NST: 57 MONITORING Monitor Explained: Monitor Explained; Test Explained; Patient Verbalized Understanding Time on Monitor: 05/01/2017 19:32 Time off Monitor: 05/01/2017 20:33 NST Duration: 61 NST INTERVENTIONS NST Interventions: PO Hydration Physician Notified NST: Dr Neilsen BABY A: [id number] BABY A Movement : Present Contraction Frequency : none FHR Baseline : 135 Accelerations : 15X15 Variability : Moderate 6-25bpm NST Review: Meets Criteria for Reactive NST NST Review and Verified By : Kuldeep Mancilla RN NST Results: Reactive NST REPORT Report Trigger: Send Report
[2017-05-11 00:06] LABS: APPEARANCE,URINE CLOUDY; BILIRUBIN,URINE NEGATIVE (NEGATIVE); GLUCOSE, URINE NEGATIVE (NEGATIVE); KETONES,URINE 20 mg/dL (NEGATIVE); LEUKOCYTE ESTERASE,URINE TRACE (NEGATIVE); NITRITE,URINE NEGATIVE (NEGATIVE); PROTEIN,URINE NEGATIVE (NEGATIVE); URINE SPECIFIC GRAVITY 1.018; UROBILINOGEN,URINE NEGATIVE mg/dL (<2.0)
[2017-05-11 00:25] LABS: URINE BARBITURATES SCREEN NEGATIVE; URINE METHADONE SCREEN NEGATIVE; URINE OPIATES LOW NEGATIVE; URINE PHENCYCLIDINE SCREEN NEGATIVE
[2017-05-11] MEDS ORDERED: HYDROXYZINE PAMOATE 50 MG CAPSULE PO ONE (00:37)
[2017-05-11] MEDS ORDERED: MAG HYDROX/AL HYDROX/SIMETH SUSP 30 ML UDCUP PO ONE (00:37)
[2017-05-11 00:58] LABS: AMNISURE (ROM) NEGATIVE (NEGATIVE)
[2017-05-11] MEDS ORDERED: HYDROXYZINE PAMOATE 50 MG CAPSULE ONE (01:21)
[2017-05-11] MEDS ORDERED: MAG HYDROX/AL HYDROX/SIMETH SUSP 30 ML UDCUP ONE (01:25)
== END 2017-05-11 01:28 | disposition home or self-care (01) ==
LOC: LC 23:24
PROVIDERS: ATTEND Specialist
PROC: 4A1HXCZ Monitoring of Products of Conception, Cardiac Rate, External Approach (ICD-10-PCS; principal; 2017-05-10)
DX: O47.1 False labor at or after 37 completed weeks of gestation (principal); Z3A.38 38 weeks gestation of pregnancy
CPT/HCPCS: 84112; 81005; 80307; 59025; J3490 ×2

== ENCOUNTER 2017-05-13 20:15 | Outpatient (CLI) | payer MEDICAID ==
[2017-05-13 20:40] LABS: APPEARANCE,URINE SLIGHTLY-CLOUDY; BILIRUBIN,URINE NEGATIVE (NEGATIVE); GLUCOSE, URINE NEGATIVE (NEGATIVE); KETONES,URINE NEGATIVE (NEGATIVE); LEUKOCYTE ESTERASE,URINE MODERATE (NEGATIVE); NITRITE,URINE NEGATIVE (NEGATIVE); PROTEIN,URINE NEGATIVE (NEGATIVE); URINE SPECIFIC GRAVITY 1.016; UROBILINOGEN,URINE NEGATIVE mg/dL (<2.0)
[2017-05-13 20:56] LABS: URINE BARBITURATES SCREEN NEGATIVE; URINE METHADONE SCREEN NEGATIVE; URINE OPIATES LOW NEGATIVE; URINE PHENCYCLIDINE SCREEN NEGATIVE
[2017-05-13] MEDS ORDERED: MAG HYDROX/AL HYDROX/SIMETH SUSP 30 ML UDCUP ONE (21:01)
[2017-05-13] MEDS ORDERED: HYDROXYZINE PAMOATE 50 MG CAPSULE ONE (21:25)
== END 2017-05-13 21:33 | disposition home or self-care (01) ==
LOC: LC 20:15
PROVIDERS: ATTEND Obstetrics & Gynecology
PROC: 4A1HXCZ Monitoring of Products of Conception, Cardiac Rate, External Approach (ICD-10-PCS; principal; 2017-05-13)
DX: O47.1 False labor at or after 37 completed weeks of gestation (principal); Z3A.39 39 weeks gestation of pregnancy
CPT/HCPCS: 59025; 81005; 80307; J3490 ×2

== ENCOUNTER 2017-05-16 07:39 | Inpatient (IN) | payer MEDICAID ==
[2017-05-16 08:06] LABS: APPEARANCE,URINE CLOUDY; BILIRUBIN,URINE NEGATIVE (NEGATIVE); GLUCOSE, URINE NEGATIVE (NEGATIVE); KETONES,URINE NEGATIVE (NEGATIVE); LEUKOCYTE ESTERASE,URINE NEGATIVE (NEGATIVE); NITRITE,URINE NEGATIVE (NEGATIVE); PROTEIN,URINE 100 mg/dL (NEGATIVE); URINE SPECIFIC GRAVITY 1.014; UROBILINOGEN,URINE NEGATIVE mg/dL (<2.0)
[2017-05-16 08:21] LABS: AMNISURE (ROM) POSITIVE (NEGATIVE)
[2017-05-16 08:26] LABS: URINE METHADONE SCREEN NEGATIVE; URINE OPIATES LOW NEGATIVE; URINE PHENCYCLIDINE SCREEN NEGATIVE
[2017-05-16 08:45] LABS: URINE BARBITURATES SCREEN NEGATIVE
[2017-05-16 09:17] LABS: ABSOLUTE EOSINOPHILS # (AUTO) 0.1 10^3/uL (0.0-0.6); ABSOLUTE LYMPHOCYTES (AUTO) 1.4 10^3/uL (0.5-4.7); ABSOLUTE MONOCYTES (AUTO) 0.5 10^3/uL (0.1-1.4); ABSOLUTE NEUT (AUTO) 6.9 10^3/uL (1.7-8.2); BASOPHILS % (AUTO) 0.4 % (0-2); EOSINOPHILS % (AUTO) 0.7 % (0-6); HEMATOCRIT 30.1 % (36.0-47.0); HEMOGLOBIN 10.4 g/dL (12.0-15.5); HGB HCT DIFFERENCE 1.1; LYMPHOCYTES % (AUTO) 16.1 % (13-45); MEAN CORPUSCULAR HEMOGLOBIN 30.6 pg (27.0-33.4); MEAN CORPUSCULAR HGB CONC 34.5 g/dL (32.0-36.0); MEAN CORPUSCULAR VOLUME 89 fl (80-97); MONOCYTES % (AUTO) 6.1 % (3-13); RED BLOOD COUNT 3.39 10^6/uL (3.72-5.28); RED CELL DISTRIBUTION WIDTH 12.8 % (11.5-14.0); SEGMENTED NEUTROPHILS % (AUTO) 76.7 % (42-78)
[2017-05-16] MEDS ORDERED: OXYTOCIN/NORMAL SALINE 1,000 ML IV PRN (09:36)
[2017-05-16] MEDS ORDERED: OXYTOCIN/NORMAL SALINE 20 UNIT/1,000 ML RTUINJ IV PRN ×2 (09:39→22:34)
[2017-05-16] MEDS ORDERED: ONDANSETRON HCL INJ/PF 4 MG/2 ML SDV IV ONE (10:37)
[2017-05-16] MEDS ORDERED: HYDROXYZINE PAMOATE 50 MG CAPSULE PO ONE (10:37)
[2017-05-16] MEDS ORDERED: HYDROXYZINE PAMOATE 50 MG CAPSULE ONE (10:45)
[2017-05-16] MEDS ORDERED: ONDANSETRON HCL INJ/PF 4 MG/2 ML SDV ONE (10:45)
[2017-05-16] MEDS ORDERED: MORPHINE SULFATE 10 MG/ML INJ IV ONE (10:50)
[2017-05-16] MEDS ORDERED: PROMETHAZINE HCL INJ 25 MG/1 ML VIAL IV ONE (10:50)
[2017-05-16] MEDS ORDERED: PROMETHAZINE HCL INJ 25 MG/1 ML VIAL ONE (10:58)
[2017-05-16] MEDS ORDERED: MORPHINE SULFATE 10 MG/ML INJ ONE (10:58)
[2017-05-16] MEDS ORDERED: OXYTOCIN/NORMAL SALINE 0 UNIT/0 ML RTUINJ ONE (13:07)
[2017-05-16] MEDS ORDERED: EPHEDRINE SULFATE INJ 50 MG/1 ML AMPULE ONE (13:57)
[2017-05-16] MEDS ORDERED: FENTANYL/BUPIVACAINE/NS/PF 200 MCG/100 ML RTUINJ EPI ONE (13:58)
[2017-05-16] MEDS ORDERED: BUPIVACAINE HCL 0.25 % INJ/PF (2.5 MG/1 ML) 30 ML VIAL ONE (13:58)
[2017-05-16] MEDS ORDERED: MAG HYDROX/AL HYDROX/SIMETH SUSP 30 ML UDCUP ONE (18:24)
[2017-05-16] MEDS ORDERED: MAG HYDROX/AL HYDROX/SIMETH SUSP 30 ML UDCUP PO ONE (18:30)
[2017-05-16] MEDS ORDERED: MISOPROSTOL 0.2 MG TABLET ONE (19:57)
[2017-05-16] MEDS ORDERED: OXYTOCIN/NORMAL SALINE 20 UNIT/1,000 ML RTUINJ ONE (19:58)
[2017-05-16] MEDS ORDERED: LIDOCAINE 1% INJ-PF (10 MG/ML) 30 ML SDV ONE (19:58)
[2017-05-16] MEDS ORDERED: PSEUDOEPHEDRINE HCL 30 MG TABLET PO PRN (22:34)
[2017-05-16] MEDS ORDERED: DIPHENHYDRAMINE HCL 25 MG CAPSULE PO PRN (22:34)
[2017-05-16] MEDS ORDERED: PROMETHAZINE HCL INJ 25 MG/1 ML VIAL IV PRN (22:34)
[2017-05-16] MEDS ORDERED: PROMETHAZINE HCL 25 MG SUPP.RECT PR PRN (22:34)
[2017-05-16] MEDS ORDERED: MEASLES,MUMPS&RUBELLA VACC/PF 0.5 ML VIAL SUBCUT PRN (22:34)
[2017-05-16] MEDS ORDERED: PROMETHAZINE HCL 25 MG TABLET PO PRN (22:34)
[2017-05-16] MEDS ORDERED: ACETAMINOPHEN WITH CODEINE #3 TABLET PO PRN (22:34)
[2017-05-16] MEDS ORDERED: BENZOCAINE/MENTHOL AEROSOL SPRAY 56 ML TOP PRN (22:34)
[2017-05-16] MEDS ORDERED: GLYCERIN/WITCH HAZEL LEAF 1 EACH MED..PAD TP PRN (22:34)
[2017-05-16] MEDS ORDERED: NA PHOS,M-B/NA PHOS,DI-BA (ADULT) 133 ML ENEMA PR PRN (22:34)
[2017-05-16] MEDS ORDERED: MAGNESIUM HYDROXIDE SUSP 30 ML UDCUP PO PRN (22:34)
[2017-05-16] MEDS ORDERED: ZOLPIDEM TARTRATE 5 MG TABLET PO PRN (22:34)
[2017-05-16] MEDS ORDERED: ACETAMINOPHEN 650 MG SUPP.RECT PR PRN (22:34)
[2017-05-16] MEDS ORDERED: DIPH/PERTUSS(ACELL)/TETANUS VAC/PF 0.5 ML SYR (>=10YO) IM PRN (22:34)
[2017-05-16] MEDS ORDERED: DIBUCAINE 1% OINTMENT 28 GM TP PRN (22:34)
[2017-05-16] MEDS ORDERED: IBUPROFEN 800 MG TABLET ONE (23:06)
[2017-05-17] MEDS ORDERED: ACETAMINOPHEN 325 MG TABLET ONE (00:35)
[2017-05-17] MEDS ORDERED: AMPICILLIN SOD/SULBACTAM 3 GM VIAL ONE (00:36)
--- NOTE | 2017-05-17 01:39 | Admission Physical ---
Datetime Report Generated by CPN: 05/17/2017 01:38 CURRENT ADMISSION Chief Complaint: Suspected Ruptured Membranes Chief Complaint Other: ROM w clear fluid at 0730 this am Indication for Induction: PROM Admit Plan: Admit to Unit; Initiate Labor Induction Protocol ALLERGIES Medication Allergies: Yes Medication Allergies: oxycodone/IN/Nightmares (05/16/2017); acetaminophen/IN/Nightmares (05/16/2017) Medication Allergies: Medication Sensitivity to oxycodone/IN/Nightmares (05/16/2017); acetaminophen/IN/Nightmares (05/16/2017) Medication Allergies: oxycodone/IN/Nightmares (04/24/2017); acetaminophen/IN/Nightmares (04/24/2017) Medication Allergies: oxycodone/IN/Nightmares (04/22/2017); acetaminophen/IN/Nightmares (04/22/2017) Medication Allergies: oxycodone/IN/Nightmares (03/17/2017); acetaminophen/IN/Nightmares (03/17/2017) Medication Allergies: oxycodone/IN/Nightmares (03/12/2017); acetaminophen/IN/Nightmares (03/12/2017) Medication Allergies: oxycodone/IN/Nightmares (02/18/2017); acetaminophen/IN/Nightmares (02/18/2017) Medication Allergies: oxycodone/IN/Nightmares (12/28/2016); acetaminophen/IN/Nightmares (12/28/2016) Latex: No Latex Allergies Food Allergies: N/A Environmental Allergies: N/A OBSTETRICAL HISTORY EDC: 05/18/2017 00:00 : 2 Para: 0 Term: 0 : 0 SAB: 1 IAB: 0 Ectopic: 0 Livin Cesareans: 0 VBACs: 0 Multiple Births: 0 Gestational Diabetes: No Rh Sensitization: No Incompetent Cervix: No CLARA: No Infertility: No ART Treatment: No Uterine Anomaly: No IUGR: No Hx Previous C/S: No Macrosomia: No Hx Loss/Stillborn: No PIH: No Hx : No Placenta Previa/Abruption: No Depression/PP Depression: No PTL/PROM: No Post Hemorrhage: No Current Procedures: Ultrasound; NST Obstetrical History Comments: G1: 14 week SAB-unknown cause- 2014 induction with pills- per [facility] records pt, had severe reaction to cytotec (stopped breathing, put tube in nose) n omention in records or allergies per pt, only discharge summary in [facility] G2: current SEE RECORDS Alcohol: No Marijuana : No Cocaine: No Other Illicit Drugs: No Cigarettes: Current Everyday Smoker. [id number] Cigarette Frequency: < 5 per day Advised to Stop: Yes MEDICAL HISTORY Diabetes: No Blood Transfusion: No Pulmonary Disease (Asthma, TB): Yes Breast Disease: No Hypertension: No Manager Aerospace Surgery: No Heart Disease: No Hosp/Surgery: No Autoimmune Disorder: No Anesthetic Complications: No Kidney Disease: No Abnormal Pap Smear: No Neuro/Epilepsy: No Psychiatric Disorders: No Other Medical Diseases: No Hepatitis/Liver Disease: No Significant Family History: No Varicosities/Phlebitis: No Trauma/Violence : No Thyroid Dysfunction: No Medical History Comments: Asthma, wisdom teeth removed, hospitalization with G1 INFECTIOUS HISTORY Gonorrhea: No Genital Herpes: No Chlamydia: No Tuberculosis: No Syphilis: No Hepatitis: No HIV/AIDS Exposure: No Rash or Viral Illness: No HPV: No PHYSICAL EXAM General: Normal HEENT: Normal Neurologic: Normal Thyroid: Deferred Heart: Normal Lungs: Normal Breast: Deferred Back: Normal Abdomen: Normal Genitourinary Exam: Deferred Extremities: Normal DTRs: Normal Pelvic Type: Not Done Physical Exam Comments: Gravid abdomen Pelvis not proven Vital Signs: Reviewed; Within Normal Limits VAGINAL EXAM Dilatation: 2 Effacement: 70 Station: -2 MEMBRANES Membranes: Ruptured Amniotic Fluid Color: Clear FETUS A EGA: 39.5 Monitoring: External US FHR- Baseline: 135 Variability: Moderate 6-25bpm Presentation: Vertex Admit Comment: of 39.5 wks Hx missed AB at 14+ wks in 2014 ? severe reaction to Cytotec-? intubation required SROM at 0730 08/22/17 w clear fluid Admit to l_d for Pitocin induction as not in labor GBS negative PLANS FOR LABOR AND DELIVERY Labor and Delivery: None Pain Management: Medications Other Pain Management Plans: Wants IV meds no Epidural Feeding Preference: Both Benefit of Breast Feed Discussed: Yes Circumcision: N/A INFORMED CONSENT Assignment: Sonia Choi MD Signature: with User ID: Natasha : with User ID: Natasha : I personally evaluated and examined the patient in conjunction with the MLP and agree with the assessment, treatment plan and disposition. : I personally evaluated and examined the patient in conjunction with the MLP and agree with the assessment, treatment plan and disposition.
--- NOTE | 2017-05-17 02:04 | Delivery Summary ---
Del Sum A-C Datetime Report Generated by CPN: 05/17/2017 02:04 DELIVERY PERSONNEL DELIVERY PERSONNEL: [id number] Delivery Doctor:: Sonia Choi MD Nurse Global Program Director Certified:: Vidhi Mccracken CNM Labor and Delivery Nurse:: Gaby Garcia RNkids activities coach Nurse:: Araceli Ventura RN Nursery Nurse:: Kimberly Mcrae RN Investment Strategist/VARNISH SUPERVISOR: Morgan Ertel, VARNISH SUPERVISOR MATERNAL INFORMATION Delivery Anesthesia: Epidural Medications After Delivery: Pitocin Drip 20 Units/1000ml NSS Estimated Blood Loss (ml): 250 Maternal Complications: None Provider Comments: Called to room 9 after patient had been pushing and vertex at +3-slightly visible with pushing. Baby began having variable decelerations with each push--these became deeper and longer time to return to baseline. Dr Choi called in-vacuum extractor applied-baby delivered after 2nd pull at 2148 under epidural anesthesia. Pop-off with first pull. Delivered OA to NIDIA with compound left hand-posterior arm reduced prior to delivery of shoulders. Spontaneous respirations and cry. 3-vessel cord. Apgars 8-9. Cord clamped x2, after 2 min delay, then cut by FOB. Placenta, membranes, and cord expelled at 2153, Hernández presentation. Bilateral labial w extension into vaginal wall on left side repaired under epidural anesthesia. Uterus explored. FF at U-2. Lochia minimal. Patient and baby stable. LABOR SUMMARY EDC: 05/18/2017 00:00 No. Babies in Womb: 1 Attempted: No Labor Anesthesia: Epidural LABOR INFORMATION Reason for Induction: Not Applicable Onset of Labor: 05/16/2017 07:25 Complete Dilatation: 05/16/2017 19:51 Oxytocin: Augmentation Group B Beta Strep: neg Antibiotics # of Doses: 0 Steroids Given: None Reason Steroids Not Administered: Not Applicable MEMBRANES Membranes Rupture Method: Spontaneous Rupture of Membranes: 05/16/2017 07:25 Length of Rupture (hr): 14.38 Amniotic Fluid Color: Clear Amniotic Fluid Amount: Small Amniotic Fluid Odor: None STAGES OF LABOR Stage 1 hr: 12 Stage 1 min: 26 Stage 2 hr: 1 Stage 2 min: 57 Stage 3 hr: 0 Stage 3 min: 5 Total Time in Labor hr: 14 Total Time in Labor min: 28 VAGINAL DELIVERY Episiotomy: None Laceration Extension: N/A Laceration Type: Vaginal Other Laceration: bilateral labial Laceration Repair: Yes Laceration Repair Note: Labial and vaginal tears repaired with 3-0 chromic using interrupted stitches. Sponge Count Correct: N/A Sharps Count Correct: Yes CSECTION DELIVERY CSection Incision: N/A BABY A INFORMATION Infant Delivery Date/Time: 05/16/2017 21:48 Method of Delivery: Vaginal Born in Route : No : N/A Forceps: N/A Vacuum Extraction: Successful Shoulder Dystocia : No PRESENTATION/POSITION BABY A Presentation: Cephalic Cephalic Presentation: Vertex Vertex Position: Left Occipital Anterior Breech Presentation: N/A PLACENTA INFORMATION BABY A Placenta Delivery Time : 05/16/2017 21:53 Placenta Method of Delivery: Spontaneous Placenta Status: Delivered SCORES BABY A Heart Rate 1 min: >100 bpm Resp Effort 1 min: Slow, Irregular Reflex Irritability 1 min: Cough or Sneeze or Pulls Away Muscle Tone 1 min: Active Motion Color 1 min: Body [place], Extremities Blue SCORE 1 MIN: 8 Heart Rate 5 min: >100 bpm Resp Effort 5 min: Good Cry Reflex Irritability 5 min: Cough or Sneeze or Pulls Away Muscle Tone 5 min: Active Motion Color 5 min: Body [place], Extremities Blue SCORE 5 MIN: 9 INFANT INFORMATION BABY A Gestational Age at Delivery: 39.5 Gestational Status: Full Term- 39- 40.6 Weeks Infant Outcome : Liveborn Condition : Stable Infant Sex: Female IDENTIFICATION BABY A Infant Verification Date/Time: 05/16/2017 22:06 ID Band Number: [id number] Mother's Name Verified: Yes RN Verifying Infant: R Forman, RNC Additional Verifying Personnel: D Leyda, US WEIGHT/LENGTH BABY A Infant Birthweight (gm): 3400 Infant Weight (lb): 7 Infant Weight (oz): 8 Length (in): 20.50 Length (cm): 52.07 CORD INFORMATION BABY A No. Cord Vessels: 3 Nuchal Cord : N/A Nuchal Cord- Other: L compound hand Cord Blood Taken: Yes-For Storage (Mom's Blood type +) Infant Suction: Mouth; Nose ASSESSMENT BABY A Infant Complications: Multiple Late Decels; Multiple Variable Decels Physical Findings at Delivery: Caput Succedaneum Infant Respirations: Appears Normal Skin to Skin: Yes Skin to Skin Time (min): 40 Book Mender/ALS Called : No Care By: Carmen Mcrae RN Transferred To: Remains with Mother SIGNATURES Assignment: Sonia Choi MD Signature: with User ID: Natasha : with User ID: Natasha : I personally evaluated and examined the patient in conjunction with the MLP and agree with the assessment, treatment plan and disposition.
[2017-05-17] MEDS: IBUPROFEN 800 MG TABLET PO SCH ×3 (06:03→21:37)
[2017-05-17 07:40] LABS: HEMOGLOBIN 9.2 g/dL (12.0-15.5); HGB HCT DIFFERENCE 0.6; MEAN CORPUSCULAR HEMOGLOBIN 29.9 pg (27.0-33.4); MEAN CORPUSCULAR HGB CONC 34.1 g/dL (32.0-36.0); MEAN CORPUSCULAR VOLUME 88 fl (80-97); RED BLOOD COUNT 3.08 10^6/uL (3.72-5.28); WHITE BLOOD COUNT 17.7 10^3/uL (4.0-10.5)
[2017-05-17] MEDS: DOCUSATE SODIUM 100 MG CAPSULE PO SCH ×2 (10:04→17:07)
[2017-05-17] MEDS: PRENATAL VITAMIN W-O CA NO5/FE FUMARATE/FA CAPSULE PO SCH (10:05)
[2017-05-17] MEDS: FAMOTIDINE 20 MG TABLET PO SCH ×2 (10:05→21:37)
[2017-05-17] MEDS: SENNOSIDES/DOCUSATE 8.6-50 MG 1 EACH TABLET PO SCH (10:05)
[2017-05-17] MEDS: FERROUS SULFATE 325 MG TABLET PO SCH ×2 (10:06→17:08)
--- NOTE | 2017-05-17 10:11 | PDOC PROGRESS REPORT ---
Subjective-OB Subjective: Post Delivery Day: 1 21 year old. Denies any needs at this time, lochia stable, pain well controlled , tolerating diet. Physical Exam (OB) Vital Signs: Temp Pulse Resp BP Pulse Ox 98.2 F 89 20 126/63 H 99 05/17/17 08:12 05/17/17 08:12 05/17/17 08:12 05/17/17 08:06 05/17/17 08:12 Intake & Output 05/16/17 05/17/17 05/18/17 06:59 06:59 06:59 Weight 104.25 kg - PIH/Pre-Eclampsia Headache: Absent Epigastric Pain: No Visual Changes: No - Lochia Lochia Amount: Scant < 10 ml Lochia Color: Rubra/Red - Abdomen Description: Soft Hernia Present: No Fundal Description: Firm, Midline Fundal Height: u/u - u/2 Objective-Diagnostic Laboratory: 05/17/17 07:25 05/16/17 05/17/17 09:00 07:25 WBC 17.7 H RBC 3.08 L Hgb 9.2 L Hct 27.0 L MCV 88 MCH 29.9 MCHC 34.1 RDW 13.0 Plt Count 201 Blood Type A POSITIVE Antibody Screen NEGATIVE Assessment and Plan(PN) - Assessment and Plan (1) Normal spontaneous vaginal delivery Is this a current diagnosis for this admission?: Yes Plan: routine pp care - Time Spent with Patient Time with patient: Less than 15 minutes Critical Time spent with patient: Less than 15 minutes Medications reviewed and adjusted accordingly: Yes - Disposition Anticipated Discharge: Home Within: within 48 hours
[2017-05-17] MEDS: ACETAMINOPHEN WITH CODEINE #3 TABLET PO PRN (10:16)
[2017-05-18] MEDS: IBUPROFEN 800 MG TABLET PO SCH ×2 (05:17→13:12)
[2017-05-18 06:54] LABS: HEMOGLOBIN 8.1 g/dL (12.0-15.5); HGB HCT DIFFERENCE 0.3; MEAN CORPUSCULAR HEMOGLOBIN 30.1 pg (27.0-33.4); MEAN CORPUSCULAR HGB CONC 33.9 g/dL (32.0-36.0); MEAN CORPUSCULAR VOLUME 89 fl (80-97); RED CELL DISTRIBUTION WIDTH 13.4 % (11.5-14.0); WHITE BLOOD COUNT 10.8 10^3/uL (4.0-10.5)
[2017-05-18 09:24] VITALS: BP 118/60
[2017-05-18] MEDS: DOCUSATE SODIUM 100 MG CAPSULE PO SCH ×2 (09:46→18:34)
[2017-05-18] MEDS: FAMOTIDINE 20 MG TABLET PO SCH (09:47)
[2017-05-18] MEDS: FERROUS SULFATE 325 MG TABLET PO SCH ×2 (09:47→18:34)
[2017-05-18] MEDS: SENNOSIDES/DOCUSATE 8.6-50 MG 1 EACH TABLET PO SCH (09:47)
[2017-05-18] MEDS: PRENATAL VITAMIN W-O CA NO5/FE FUMARATE/FA CAPSULE PO SCH (09:47)
--- NOTE | 2017-05-18 12:34 | PDOC DISCHARGE SUMMARY ---
Final Diagnosis Discharge Date: 05/18/17 - Final Diagnosis (1) Normal spontaneous vaginal delivery Is this a current diagnosis for this admission?: Yes Discharge Data - Discharge Medication Home Medications: No Home Medications 02/18/17 Reason(s) for Admission: Onset of Labor Procedures: NST Intrapartum Procedure(s): Spontaneous Vaginal Delivery Complication(s): Laceration-Vaginal, Laceration-Labial Laceration-Degree: 2nd - Diagnosis Test Laboratory: Temp Pulse Resp BP Pulse Ox 98.0 F 69 16 118/60 100 05/18/17 08:10 05/18/17 08:10 05/18/17 08:10 05/18/17 08:10 05/18/17 08:10 05/16/17 05/16/17 05/17/17 07:44 09:00 07:25 RBC 3.39 L 3.08 L Hgb 10.4 L 9.2 L Hct 30.1 L 27.0 L Urine Opiates Screen NEGATIVE 05/18/17 06:39 RBC 2.70 L Hgb 8.1 L Hct 24.0 L Urine Opiates Screen - Discharge information/Instructions Discharge Activity: Balance Activity w/Rest, Pelvic Rest Discharge Diet: Regular Disposition: HOME, SELF-CARE Follow up with: [facility] in: 4, Weeks
[2017-05-18] MEDS: ACETAMINOPHEN WITH CODEINE #3 TABLET PO PRN (13:12)
== END 2017-05-18 19:30 | disposition home or self-care (01) | DRG 775 ==
LOC: LC 07:39 → LR 08:37 → 2S 05-17 01:00
PROVIDERS: ADMIT Obstetrics & Gynecology; ATTEND Obstetrics & Gynecology
PROC: 10D07Z6 Extraction of Products of Conception, Vacuum, Via Natural or Artificial Opening (ICD-10-PCS; principal; 2017-05-16)
PROC: 0KQM0ZZ Repair Perineum Muscle, Open Approach (ICD-10-PCS; 2017-05-16)
PROC: 4A1HXCZ Monitoring of Products of Conception, Cardiac Rate, External Approach (ICD-10-PCS; 2017-05-16)
DX: O76 Abnormality in fetal heart rate and rhythm complicating labor and delivery (principal); O70.1 Second degree perineal laceration during delivery; Z37.0 Single live birth; O99.334 Smoking (tobacco) complicating childbirth; F17.210 Nicotine dependence, cigarettes, uncomplicated; O99.513 Diseases of the respiratory system complicating pregnancy, third trimester; J45.909 Unspecified asthma, uncomplicated; O32.6XX0 Maternal care for compound presentation, not applicable or unspecified; Z88.6 Allergy status to analgesic agent; Z3A.39 39 weeks gestation of pregnancy
CPT/HCPCS: 36415; 80307; 81005; 84112; 85025; 85027; 86592; 86850; 86900; 86901; 88307; J0295; J2270; J2405; J2550; J2590; J3490

== ENCOUNTER 2017-05-19 22:59 | Emergency (ER) | payer MEDICAID ==
[2017-05-20] MEDS ORDERED: ACETAMINOPHEN 325 MG TABLET PO ONE (00:11)
[2017-05-20] MEDS ORDERED: TRAMADOL HCL 50 MG TABLET PO ONE (00:11)
[2017-05-20] MEDS ORDERED: LIDOCAINE 5% (700 MG) TRANSDERMAL ADH..PATCH TP ONE (00:12)
--- NOTE | 2017-05-20 00:12 | ER Document Report ---
ED General - General Chief Complaint: Leg Pain Stated Complaint: LEG PAIN Time Seen by Provider: 05/19/17 23:48 Notes: Patient is a 21-year-old female who presents with 6 weeks of right hip pain. Patient states that it had been present since late third trimester and she thought it would resolve after she delivered the child but has not. She has been taking ibuprofen without any improvement of the pain. She does describe as a dull, constant, aching pain that is worsened when she tries to walk or move. She has not been previously assessed for this complaint. Denies any known fall or injury to the area. No history of similar symptoms in the past. She denies any fever or constitutional symptoms. TRAVEL OUTSIDE OF THE [place] IN LAST 30 DAYS: No - Related Data Allergies/Adverse Reactions: acetaminophen [From Percocet] Adverse Reaction (Mild, Verified 05/16/17 07:50) Nightmares oxycodone [From Percocet] Adverse Reaction (Mild, Verified 05/16/17 07:50) Nightmares Past Medical History - General Information source: Patient - Social History Smoking Status: Never Smoker Frequency of alcohol use: None Drug Abuse: None Lives with: Spouse/Significant other Family History: Reviewed & Not Pertinent Patient has suicidal ideation: No Patient has homicidal ideation: No Renal/ Medical History: Denies: Hx Peritoneal Dialysis Psychiatric Medical History: Denies: Hx Depression Past Surgical History: Reports: Hx Oral Surgery - wisdom teeth - Immunizations Immunizations up to date: Yes Hx Diphtheria, Pertussis, Tetanus Vaccination: Yes Review of Systems - Review of Systems Notes: Constitutional: Negative for fever. HENT: Negative for sore throat. Eyes: Negative for visual changes. Cardiovascular: Negative for chest pain. Respiratory: Negative for shortness of breath. Gastrointestinal: Negative for abdominal pain, vomiting or diarrhea. Genitourinary: Negative for dysuria. Musculoskeletal: Positive for right hip pain Skin: Negative for rash. Neurological: Negative for headaches, weakness or numbness. 10 point ROS negative except as marked above and in HPI. Physical Exam - Vital signs Vitals: Temp Pulse Resp BP Pulse Ox 98.9 F 80 18 143/81 H 99 05/19/17 23:07 05/19/17 23:07 05/19/17 23:07 05/19/17 23:07 05/19/17 23:07 Interpretation: Hypertensive Notes: PHYSICAL EXAMINATION: GENERAL: Well-appearing, well-nourished and in no acute distress. HEAD: Atraumatic, normocephalic. EYES: sclera anicteric, conjunctiva are normal. ENT: Moist mucous membranes. NECK: Normal range of motion LUNGS: Normal work of breathing HEART: 2+ DP pulses bilaterally EXTREMITIES: no pitting or edema. No cyanosis. Pain with internal/external rotation of the right hip. Mild pain with axial loading of the right hip. No obvious deformity to the hip or bilateral lower extremities. NEUROLOGICAL: No focal neurological deficits. Moves all extremities spontaneously and on command. PSYCH: Normal mood, normal affect. SKIN: Warm, Dry, normal turgor, no rashes or lesions noted. Course - Re-evaluation Re-evalutation: 05/20/17 00:12 No evidence of a septic joint, gout flare, dislocation, or fracture on exam and imaging. History is most consistent with a right hip strain likely secondary to recent and delivery. Vitals wnl. At this time, I do not see an indication for labs or further imaging. Will discharge with conservative measures, return precautions, and follow-up recommendations. - Vital Signs Vital signs: Temp Pulse Resp BP Pulse Ox 99.4 F 64 18 146/87 H 100 05/20/17 02:14 05/20/17 02:14 05/20/17 02:14 05/20/17 02:14 05/20/17 02:14 - Diagnostic Test Radiology reviewed: Image reviewed, Reports reviewed Radiology results interpreted by me: 05/20/17 01:38 Right hip: No acute fracture or dislocation Discharge - Discharge Clinical Impression: Right hip pain Condition: Good Disposition: HOME, SELF-CARE Additional Instructions: Your x-ray does not show any acute fracture today. You likely have a ligamentous strain. For your pain: Take ibuprofen 600 mg and acetaminophen 1000 mg every 6 hours together as needed for pain. Continue to apply heat to the area is much your able. Please follow-up with your primary care physician if you do not have improving your symptoms in the next 1-2 weeks. Please return immediately if you develop weakness, numbness, spreading redness from the area, or any other symptoms that are concerning to you.
--- NOTE | 2017-05-20 01:22 | RADIOLOGY REPORT (SQ) ---
EXAM DESCRIPTION: HIP RIGHT AP/LATERAL COMPLETED DATE/TIME: 05/20/2017 12:55 am REASON FOR STUDY: hip pain COMPARISON: None. NUMBER OF VIEWS: Two views. TECHNIQUE: AP pelvis and additional frog-leg view of the right hip. LIMITATIONS: None. FINDINGS: MINERALIZATION: Normal. RIGHT HIP: No fracture or dislocation. No worrisome bone lesions. LEFT HIP: No fracture or dislocation. No worrisome bone lesions. PUBIS AND ISCHIUM: No fracture. PELVIS: No fracture. SACRUM: No fracture or dislocation. No worrisome bone lesions. LOWER LUMBAR SPINE: No fracture or dislocation. No worrisome bone lesions. No significant disc disea se. SOFT TISSUES: No findings. OTHER: No other significant finding. IMPRESSION: NEGATIVE STUDY OF THE RIGHT HIP. NO RADIOGRAPHIC EVIDENCE OF ACUTE INJURY. TECHNICAL DOCUMENTATION: JOB ID: [id number] [employer]- All Rights Reserved
[2017-05-20 02:15] VITALS: BP 146/87
== END 2017-05-20 02:15 | disposition home or self-care (01) ==
LOC: ER 22:59
DX: M25.551 Pain in right hip (principal)
CPT/HCPCS: 99283; 73502; J3490 ×2

== ENCOUNTER → 2017-06-29 | Outpatient (CLI) | payer MEDICAID | LOC: LAB 22:03 | PROVIDERS: ATTEND Nurse Practitioner Acute Care | DX: R19.7 Diarrhea, unspecified (principal); K62.5 Hemorrhage of anus and rectum | CPT/HCPCS: 82272; 87045; 87177; 87205; 87493; 89055 ==

== ENCOUNTER 2017-07-01 17:20 | Emergency (ER) | payer MEDICAID ==
--- NOTE | 2017-07-01 18:17 | ER Document Report ---
ED Medical Screen (RME) - General Chief Complaint: Abdominal Pain Stated Complaint: RECTAL BLEEDING Time Seen by Provider: 07/01/17 17:52 Mode of Arrival: Ambulatory Information source: Patient Notes: 21-year-old female presents with 2 week duration of rectal bleeding. Patient has been seen by urgent care had stool sample sent which note no white blood cells no occult blood Patient admits to abdominal pain sore throat cough I have greeted and performed a rapid initial assessment of this patient. A comprehensive ED assessment and evaluation of the patient, analysis of test results and completion of the medical decision making process will be conducted by additional ED providers. PHYSICAL EXAMINATION: GENERAL: Well-appearing, well-nourished and in no acute distress. HEAD: Atraumatic, normocephalic. EYES: Pupils equal round extraocular movements intact, conjunctiva are normal. ENT: Nares patent NECK: Normal range of motion LUNGS: No respiratory distress Musculoskeletal: Normal range of motion NEUROLOGICAL: Normal speech, normal gait. PSYCH: Normal mood, normal affect. SKIN: Warm, Dry, normal turgor, no rashes or lesions noted. TRAVEL OUTSIDE OF THE [place] IN LAST 30 DAYS: No - Related Data Allergies/Adverse Reactions: oxycodone [From Percocet] Adverse Reaction (Mild, Verified 07/01/17 17:25) Nightmares Home Medications: Current Home Medications No Home Medications 07/01/17 [History] Past Medical History - Social History Chew tobacco use (# tins/day): No Frequency of alcohol use: Occasional Drug Abuse: None Pulmonary Medical History: Reports: Hx Asthma Renal/ Medical History: Denies: Hx Peritoneal Dialysis Psychiatric Medical History: Denies: Hx Depression Past Surgical History: Reports: Hx Oral Surgery - wisdom teeth - Immunizations Immunizations up to date: Yes Hx Diphtheria, Pertussis, Tetanus Vaccination: Yes Physical Exam - Vital signs Vitals: Temp Pulse Resp BP Pulse Ox 98.6 F 91 18 127/82 H 100 07/01/17 17:25 07/01/17 17:25 07/01/17 17:25 07/01/17 17:25 07/01/17 17:25 Course - Vital Signs Vital signs: Temp Pulse Resp BP Pulse Ox 98.6 F 91 18 127/82 H 100 07/01/17 17:25 07/01/17 17:25 07/01/17 17:25 07/01/17 17:25 07/01/17 17:25
[2017-07-01 18:55] LABS: APPEARANCE,URINE CLEAR; BILIRUBIN,URINE NEGATIVE (NEGATIVE); GLUCOSE, URINE NEGATIVE (NEGATIVE); KETONES,URINE NEGATIVE (NEGATIVE); LEUKOCYTE ESTERASE,URINE NEGATIVE (NEGATIVE); NITRITE,URINE NEGATIVE (NEGATIVE); PROTEIN,URINE NEGATIVE (NEGATIVE); URINE SPECIFIC GRAVITY 1.008; UROBILINOGEN,URINE NEGATIVE mg/dL (<2.0)
[2017-07-01 19:12] LABS: ABSOLUTE BASOPHILS # (AUTO) 0.1 10^3/uL (0.0-0.2); ABSOLUTE EOSINOPHILS # (AUTO) 0.1 10^3/uL (0.0-0.6); ABSOLUTE LYMPHOCYTES (AUTO) 1.8 10^3/uL (0.5-4.7); ABSOLUTE MONOCYTES (AUTO) 0.4 10^3/uL (0.1-1.4); ABSOLUTE NEUT (AUTO) 5.5 10^3/uL (1.7-8.2); BASOPHILS % (AUTO) 1.1 % (0-2); LYMPHOCYTES % (AUTO) 23.3 % (13-45); MEAN CORPUSCULAR HEMOGLOBIN 28.1 pg (27.0-33.4); MEAN CORPUSCULAR HGB CONC 33.4 g/dL (32.0-36.0); MEAN CORPUSCULAR VOLUME 84 fl (80-97); MONOCYTES % (AUTO) 5.1 % (3-13); RED BLOOD COUNT 4.28 10^6/uL (3.72-5.28); RED CELL DISTRIBUTION WIDTH 14.5 % (11.5-14.0); SEGMENTED NEUTROPHILS % (AUTO) 69.5 % (42-78); WHITE BLOOD COUNT 7.9 10^3/uL (4.0-10.5)
[2017-07-01 19:23] LABS: ALANINE AMINOTRANSFERASE 45 U/L (9-52); ALBUMIN 4.9 g/dL (3.5-5.0); ALKALINE PHOSPHATASE 91 U/L (38-126); ANION GAP 13 (5-19); ASPARTATE AMINO TRANSFERASE 27 U/L (14-36); BILIRUBIN,DIRECT 0.4 mg/dL (0.0-0.4); BILIRUBIN,TOTAL 0.5 mg/dL (0.2-1.3); BLOOD UREA NITROGEN 14 mg/dL (7-20); CALCIUM 10.3 mg/dL (8.4-10.2); CARBON DIOXIDE 24 mmol/L (22-30); CHLORIDE 105 mmol/L (98-107); CREATININE RESULT 0.74 mg/dL (0.52-1.25); GLUCOSE 81 mg/dL (75-110); POTASSIUM 4.4 mmol/L (3.6-5.0); TOTAL PROTEIN 8.1 g/dL (6.3-8.2)
--- NOTE | 2017-07-01 19:32 | ER Document Report ---
ED GI/ - General Chief Complaint: Abdominal Pain Stated Complaint: RECTAL BLEEDING Time Seen by Provider: 07/01/17 17:52 Mode of Arrival: Ambulatory Notes: Patient is a 21-year-old female comes emergency department for chief complaint of rectal bleeding and mid to lower abdominal pains. She states it has been worst for the past 6 days, she states that she had sharp pains earlier and then a bloody bowel movement. She states she is not constipated and she is moving her bowels well. She states she had a rectal exam a few days ago at urgent care and they told her she had no hemorrhoids or any obvious abnormalities. She denies fever chills, nausea or vomiting, flank pain. She denies any difficulty eating. She denies history of the same. She takes no daily medications, denies any surgeries. TRAVEL OUTSIDE OF THE [place] IN LAST 30 DAYS: No - Related Data Allergies/Adverse Reactions: oxycodone [From Percocet] Adverse Reaction (Mild, Verified 07/01/17 17:25) Nightmares Past Medical History - General Information source: Patient - Social History Smoking Status: Current Every Day Smoker Chew tobacco use (# tins/day): No Frequency of alcohol use: Occasional Drug Abuse: None Lives with: Family Family History: Reviewed & Not Pertinent Pulmonary Medical History: Reports: Hx Asthma Renal/ Medical History: Denies: Hx Peritoneal Dialysis Psychiatric Medical History: Denies: Hx Depression Past Surgical History: Reports: Hx Oral Surgery - wisdom teeth - Immunizations Immunizations up to date: Yes Hx Diphtheria, Pertussis, Tetanus Vaccination: Yes Review of Systems - Review of Systems Constitutional: No symptoms reported EENT: No symptoms reported Cardiovascular: No symptoms reported Respiratory: No symptoms reported Gastrointestinal: See HPI Genitourinary: No symptoms reported Female Genitourinary: No symptoms reported Musculoskeletal: No symptoms reported Skin: No symptoms reported Hematologic/Lymphatic: No symptoms reported Neurological/Psychological: No symptoms reported Physical Exam - Vital signs Vitals: Temp Pulse Resp BP Pulse Ox 98.6 F 91 18 127/82 H 100 07/01/17 17:25 07/01/17 17:25 07/01/17 17:25 07/01/17 17:25 07/01/17 17:25 Interpretation: Normal - General General appearance: Appears well, Alert In distress: None - patient sitting calmly on the bed - HEENT Head: Normocephalic, Atraumatic Eyes: Normal Conjunctiva: Normal Extraocular movements intact: Yes Eyelashes: Normal Pupils: PERRL Nasal: Normal Mouth/Lips: Normal Mucous membranes: Normal Pharynx: Normal Neck: Normal - Respiratory Respiratory status: No respiratory distress Chest status: Nontender Breath sounds: Normal. No: Decreased air movement, Wheezing Chest palpation: Normal - Cardiovascular Rhythm: Regular. No: Tachycardia Heart sounds: Normal auscultation, S1 appreciated, S2 appreciated Murmur: No - Abdominal Inspection: Normal Distension: No distension. No: Distended Bowel sounds: Hypoactive Tenderness: Nontender. 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 - Back Back: Normal, Nontender. No: Tender, CVA tenderness - Extremities General upper extremity: Normal inspection, Nontender, Normal color, Normal ROM , Normal temperature General lower extremity: Normal inspection, Nontender, Normal color, Normal ROM , Normal temperature, Normal weight bearing. No: Earl's sign - Neurological Neuro grossly intact: Yes Cognition: Normal Orientation: AAOx4 Savage Coma Scale Eye Opening: Spontaneous Juan Coma Scale Verbal: Oriented Savage Coma Scale Motor: Obeys Commands Savage Coma Scale Total: 15 Speech: Normal Motor strength normal: LUE, RUE, LLE, RLE Sensory: Normal - Psychological Associated symptoms: Normal affect, Normal mood - Skin Skin Temperature: Warm Skin Moisture: Dry Skin Color: Normal Course - Re-evaluation Re-evalutation: CBC unremarkable, chemistry unremarkable, urinalysis unremarkable. Patient has no abdominal tenderness on my examination. CAT scan from triage reviewed, shows no acute abnormalities, does visualize appendix. Patient without pelvic pain, vaginal bleeding, vaginal discharge. On examination she actually does have an internal hemorrhoid and a small resolving external hemorrhoid. No bleeding on my rectal examination. Patient also complaining of a mild sore throat, strep test is negative, throat examination is completely unremarkable. Discussed results with patient in detail. Recommendation for patient is to use the Anusol suppository, stool softener, and follow-up with gastroenterology for additional evaluation and management. Discharge discussed return precautions in detail, patient states understanding and agreement. - Vital Signs Vital signs: Temp Pulse Resp BP Pulse Ox 98.6 F 78 16 135/79 H 100 07/01/17 17:25 07/01/17 21:09 07/01/17 21:09 07/01/17 21:09 07/01/17 21:09 - Laboratory Result Diagrams: 07/01/17 18:50 07/01/17 18:50 Laboratory results interpreted by me: 07/01/17 07/01/17 18:50 18:50 RDW 14.5 H Calcium 10.3 H Discharge - Discharge Clinical Impression: Rectal bleeding Condition: Stable Disposition: HOME, SELF-CARE Additional Instructions: Your CAT scan and laboratory evaluation today are normal. You do have an internal hemorrhoid and a small external hemorrhoid. I recommend using the stool softener as prescribed, using the suppository as prescribed, do not strain or sit for long periods of time on the toilet, drink plenty of fluids and eat plenty of fiber. If bleeding symptoms continue please follow-up with the gastroenterology referral, call Monday. Return to emergency department for any concerning or worsening symptoms including fever, vomiting, severe abdominal pain, heavy bleeding, dizziness/ passing out, or any other concerning symptoms. Prescriptions: Docusate Sodium [Colace 100 mg Capsule] 100 mg PO DAILY #30 capsule Phenylephrine HCl [Anusol Suppository] 1 supp.rect ME BID #28 supp.rect Referrals: DECLAN BOBO MD [Primary Care Provider] - Follow up as needed AMARA SIDDIQUI MD [ACTIVE STAFF] - 07/03/17 FROILAN MAO MD [ACTIVE STAFF] - 07/03/17
--- NOTE | 2017-07-01 20:23 | RADIOLOGY REPORT (SQ) ---
EXAM DESCRIPTION: CT ABD/PELVIS WITH IV ONLY COMPLETED DATE/TIME: 07/01/2017 8:04 pm REASON FOR STUDY: abd pain, rectal bleeding COMPARISON: 05/14/2016 TECHNIQUE: CT scan of the abdomen and pelvis performed using helical scanning technique with dynamic intravenous contrast injection. No oral contrast. Images reviewed with lung, soft tissue, and bone windows. Reconstructed coronal and sagittal MPR images reviewed. Delayed images for evaluation of the urinary system also acquired. All images stored on PACS. All CT scanners at this facility use dose modulation, iterative reconstruction, and/or weight based d osing when appropriate to reduce radiation dose to as low as reasonably achievable (ALARA). [facility]: Dose Right [facility]: CareDose [facility]: Dose Right [facility]: Teradose 4D [facility]: Avatrip CONTRAST TYPE AND DOSE: contrast/concentration: Isovue 370.00 mg/ml; Total Contrast Delivered: 100.0 ml; Total Saline Delivered: 70.9 ml RENAL FUNCTION: None required. The patient is less than 50 years old. RADIATION DOSE: Up-to-date CT equipment and radiation dose reduction techniques were employed. CTDIv ol: 15.5 - 19.5 mGy. DLP: 1915 mGy-cm.. LIMITATIONS: None. FINDINGS: LOWER CHEST: No significant findings. No nodules or infiltrates. LIVER: Normal size. No masses. No dilated ducts. SPLEEN: Normal size. No focal lesions. PANCREAS: No masses. No significant calcifications. No adjacent inflammation or peripancreatic fluid collections. Pancreatic duct not dilated. GALLBLADDER: No identified stones by CT criteria. No inflammatory changes to suggest cholecystitis. ADRENAL GLANDS: No significant masses or asymmetry. RIGHT KIDNEY AND URETER: No solid masses. No significant calcifications. No hydronephrosis or hyd roureter. LEFT KIDNEY AND URETER: No solid masses. No significant calcifications. No hydronephrosis or hydr oureter. AORTA AND VESSELS: No aneurysm. No dissection. Renal arteries, SMA, celiac without stenosis. RETROPERITONEUM: No retroperitoneal adenopathy, hemorrhage or masses. BOWEL AND PERITONEAL CAVITY: No masses or inflammatory changes. No free fluid or peritoneal masses. APPENDIX: Normal. PELVIS: No mass. No free fluid. Normal bladder. ABDOMINAL WALL: No masses. No hernias. BONES: No significant or acute findings. OTHER: No other significant finding. IMPRESSION: NO SIGNIFICANT OR ACUTE FINDING IN THE ABDOMEN OR PELVIS ON CT SCAN WITH IV CONTRAST. TECHNICAL DOCUMENTATION: JOB ID: [id number] Quality ID # [id number]: Final reports with documentation of one or more dose reduction techniques (e.g., Au tomated exposure control, adjustment of the mA and/or kV according to patient size, use of iterative reconstruction technique) 2010 [employer]- All Rights Reserved
[2017-07-01 21:11] VITALS: BP 135/79
== END 2017-07-01 21:09 | disposition home or self-care (01) ==
LOC: ER 17:20
DX: K62.5 Hemorrhage of anus and rectum (principal); R10.30 Lower abdominal pain, unspecified; K64.8 Other hemorrhoids; K64.4 Residual hemorrhoidal skin tags; J02.9 Acute pharyngitis, unspecified; J45.909 Unspecified asthma, uncomplicated; F17.200 Nicotine dependence, unspecified, uncomplicated
CPT/HCPCS: 36415; 74177; 80053; 81001; 83690; 85025; 87070; 87880; 99284

== ENCOUNTER 2017-07-24 07:54 | Day surgery (SDC) | payer MEDICAID ==
[~2017-07-24 07:54] MED LIST: PROPOFOL INJ 200 MG/20 ML VIAL IV ONE
[2017-07-24 09:41] VITALS: BP 115/60
--- NOTE | 2017-07-24 13:35 | Operative Report ---
Operative Report DATE OF SURGERY: 07/24/17 Operative Report: The risks, benefits and alternatives of the procedure including risks of bleeding, perforation requiring surgery are explained to the patient in detail and informed consent is obtained. Patient is brought back to the endoscopy suite and placed in the left, lateral decubital position. Timeout was called. Propofol medications administered. A rectal examination is done which did not reveal any masses, tears or fissures. An Olympus videoscope is into the patient 's rectum. The scope was then carefully advanced all the way to the cecum. The cecum was identified by the usual anatomical landmarks including the ileocecal valve as well as the appendiceal office. Photodocumentation is obtained. The scope was then sequentially pulled back via the various segments of the colon including the ascending colon, hepatic flexure, transverse colon, splenic flexure, descending colon finding to the rectosigmoid portions of the colon. Retroflexion maneuvers performed. PREOPERATIVE DIAGNOSIS: Blood in stool POSTOPERATIVE DIAGNOSIS: Mild terminal ileitis status post biopsy. Internal hemorrhoids OPERATION: Colonoscopy with biopsy SURGEON: FROILAN MAO ANESTHESIA: LMAC TISSUE REMOVED OR ALTERED: As noted above. COMPLICATIONS: None. ESTIMATED BLOOD LOSS: None. INTRAOPERATIVE FINDINGS: As described above. PROCEDURE: Patient tolerated the procedure well. No immediate postprocedure complications are noted. Patient discharged in good condition. Discharge date 07/24/2017. Discharge diet: Regular. Discharge activity: Regular. 2-3 week follow-up to discuss findings. Patient is instructed to call the office or proceed to the emergency room should there be any further problems or questions. We will await pathology.
== END 2017-07-24 09:40 | disposition home or self-care (01) ==
LOC: END 07:54
PROVIDERS: ATTEND Internal Medicine Gastroenterology
PROC: 0DBB8ZX Excision of Ileum, Via Natural or Artificial Opening Endoscopic, Diagnostic (ICD-10-PCS; principal; 2017-07-24 09:00)
DX: K52.9 Noninfective gastroenteritis and colitis, unspecified (principal); K21.9 Gastro-esophageal reflux disease without esophagitis; K92.1 Melena; K64.8 Other hemorrhoids
CPT/HCPCS: 45380; 88305 ×2; J2704; 810

== ENCOUNTER 2017-12-01 09:10 | Emergency (ER) | payer MEDICAID ==
[2017-12-01 09:24] VITALS: BP 133/81
[2017-12-01] MEDS ORDERED: NORMAL SALINE 1000 ML 1,000 ML IV ONE (09:55)
[2017-12-01] MEDS ORDERED: DICYCLOMINE HCL 20 MG TABLET PO ONE (09:55)
[2017-12-01] MEDS ORDERED: ONDANSETRON 4 MG TAB.RAPDIS PO ONE (09:55)
[2017-12-01] MEDS ORDERED: ACETAMINOPHEN 325 MG TABLET PO ONE (09:56)
--- NOTE | 2017-12-01 10:01 | ER Document Report ---
ED General - General Chief Complaint: Abdominal Pain Stated Complaint: VOMITING, FEVER, DIARRHEA Time Seen by Provider: 12/01/17 09:51 Notes: 21-year-old female here with complaints of nausea vomiting diarrhea fevers chills lower abdominal pain ongoing for the past few days. She states that the symptoms started shortly after eating homemade [place]ak[place] food. Her boyfriend is also sick with similar symptoms including fever and vomiting and she reports that she did not get sick until he came over to her house with these symptoms. She has tried taking NyQuil but has thrown it up. Reports that she is not able to keep anything down. TRAVEL OUTSIDE OF THE [place] IN LAST 30 DAYS: No - Related Data Allergies/Adverse Reactions: oxycodone [From Percocet] Adverse Reaction (Mild, Verified 12/01/17 09:17) Nightmares Past Medical History - Social History Smoking Status: Current Every Day Smoker Frequency of alcohol use: None Drug Abuse: None Family History: Reviewed & Not Pertinent Patient has suicidal ideation: No Patient has homicidal ideation: No - Past Medical History Cardiac Medical History: Denies: Hx Coronary Artery Disease, Hx Heart Attack, Hx Hypertension Pulmonary Medical History: Reports: Hx Asthma - A CHILD Denies: Hx Bronchitis, Hx COPD, Hx Pneumonia Neurological Medical History: Denies: Hx Cerebrovascular Accident, Hx Seizures Renal/ Medical History: Denies: Hx Peritoneal Dialysis Musculoskeltal Medical History: Denies Hx Arthritis Psychiatric Medical History: Denies: Hx Depression Past Surgical History: Reports: Hx Oral Surgery - wisdom teeth - Immunizations Immunizations up to date: Yes Hx Diphtheria, Pertussis, Tetanus Vaccination: Yes Review of Systems - Review of Systems Notes: See history of present illness for pertinent positive review of systems; otherwise all review of systems have been reviewed and are negative Physical Exam - Vital signs Vitals: Temp Pulse Resp BP Pulse Ox 99.5 F 117 H 16 133/81 H 96 12/01/17 09:23 12/01/17 09:23 12/01/17 09:23 12/01/17 09:23 12/01/17 09:23 - Notes Notes: PHYSICAL EXAMINATION: GENERAL: Well-appearing and in no acute distress. Obese female seen sitting down HEAD: Atraumatic, normocephalic. EYES: Pupils equal round and reactive to light, extraocular movements intact, sclera anicteric, conjunctiva are normal. ENT: nares patent, oropharynx clear without exudates. Moist mucous membranes. NECK: Normal range of motion, supple without lymphadenopathy LUNGS: CTAB and equal. No wheezes rales or rhonchi. HEART: Mildly tachycardic rate low 100s and regular rhythm without murmurs ABDOMEN: Soft, no tenderness whatsoever. No guarding, no rebound. No facial grimacing or wincing upon palpation EXTREMITIES: Normal range of motion, no pitting edema. No cyanosis. NEUROLOGICAL: Cranial nerves grossly intact. Normal sensory/motor exams. PSYCH: Normal mood, normal affect. SKIN: Warm, Dry, normal turgor, no rashes or lesions noted Course - Re-evaluation Re-evalutation: 12/01/17 09:57 MEDICAL DECISION MAKING: Concern for viral gastroenteritis versus foodborne illness Given the history and no tenderness to palpation on exam, I feel these are reasonable considerations I have low clinical suspicion for acute emergent intra-abdominal pathology i.e. appendicitis Will give her a dose of Bentyl Zofran Tylenol and bag of fluids Instructed follow-up PCP today or early next week Patient understands and agrees to the plan of care - Vital Signs Vital signs: Temp Pulse Resp BP Pulse Ox 99.5 F 117 H 16 133/81 H 96 12/01/17 09:23 12/01/17 09:23 12/01/17 09:23 12/01/17 09:23 12/01/17 09:23 Discharge - Discharge Clinical Impression: Gastroenteritis Condition: Good Disposition: HOME, SELF-CARE Additional Instructions: You likely have foodborne illness versus gastroenteritis (contagious). Use the vomiting medicine Zofran to help control your vomiting so that you can stay hydrated with small sips of Gatorade. Control fever with Tylenol and/or Motrin. You were seen in the emergency department at [facility]. Please followup with your primary physician in the next few days for further management/evaluation. Please return to the emergency department for worsening of symptoms or any symptom that you deem to be concerning or life-threatening. Thank you for allowing us to be part of your care. Prescriptions: Ondansetron [Zofran Odt] 4 mg PO Q6HP PRN #12 tab.rapdis PRN Reason: Dicyclomine HCl [Bentyl 20 mg Tablet] 20 mg PO QID #40 tablet Referrals: DECLAN BOBO MD [Primary Care Provider] - Follow up as needed
== END 2017-12-01 10:40 | disposition home or self-care (01) ==
LOC: ER 09:10
DX: K52.9 Noninfective gastroenteritis and colitis, unspecified (principal); R10.30 Lower abdominal pain, unspecified; R50.9 Fever, unspecified; F17.200 Nicotine dependence, unspecified, uncomplicated
CPT/HCPCS: 99283; 96360; J3490 ×2; S0119; J7030

== ENCOUNTER → 2017-12-29 | Outpatient (CLI) | payer MEDICAID | LOC: LAB 18:40 | PROVIDERS: ATTEND Nurse Practitioner Acute Care | DX: N91.2 Amenorrhea, unspecified (principal) | CPT/HCPCS: 36415; 84703 ==

== ENCOUNTER 2018-02-28 21:01 | Emergency (ER) | payer MEDICAID ==
[2018-02-28 23:24] LABS: APPEARANCE,URINE SLIGHTLY-CLOUDY; BILIRUBIN,URINE NEGATIVE (NEGATIVE); COLOR,URINE YELLOW; GLUCOSE, URINE NEGATIVE (NEGATIVE); KETONES,URINE NEGATIVE (NEGATIVE); LEUKOCYTE ESTERASE,URINE TRACE (NEGATIVE); NITRITE,URINE NEGATIVE (NEGATIVE); PROTEIN,URINE NEGATIVE (NEGATIVE); URINE SPECIFIC GRAVITY 1.015; UROBILINOGEN,URINE NEGATIVE mg/dL (<2.0)
[2018-02-28] MEDS ORDERED: ONDANSETRON HCL INJ/PF 4 MG/2 ML SDV IV ONE (23:53)
[2018-02-28] MEDS ORDERED: NORMAL SALINE 1000 ML 1,000 ML IV ONE (23:53)
--- NOTE | 2018-02-28 23:55 | ER Document Report ---
ED General - General Chief Complaint: Abdominal Pain Stated Complaint: VOMITING Time Seen by Provider: 02/28/18 23:47 Notes: Patient is 22-year-old female presents with complaint of pain over the upper abdomen and vomiting. She is a temp of 101.6 at home. She says she has had gallbladder problems for 4 years. She has not had it taken out does not see a surgeon about it. She said she went to [facility] last week but left because it was 3 morning and she was waiting too long. She said there was a few small flecks of blood or emesis. She says most of her emesis is clear. No blood in her stool. No dysuria. No abnormal vaginal discharge or bleeding. No other complaints at this time. TRAVEL OUTSIDE OF THE [place] IN LAST 30 DAYS: No - Related Data Allergies/Adverse Reactions: oxycodone [From Percocet] Adverse Reaction (Mild, Verified 12/01/17 09:17) Nightmares Past Medical History - Social History Smoking Status: Never Smoker Frequency of alcohol use: None Drug Abuse: None Family History: Reviewed & Not Pertinent - Past Medical History Cardiac Medical History: Denies: Hx Coronary Artery Disease, Hx Heart Attack, Hx Hypertension Pulmonary Medical History: Reports: Hx Asthma - A CHILD Denies: Hx Bronchitis, Hx COPD, Hx Pneumonia Neurological Medical History: Denies: Hx Cerebrovascular Accident, Hx Seizures Renal/ Medical History: Denies: Hx Peritoneal Dialysis Musculoskeltal Medical History: Denies Hx Arthritis Psychiatric Medical History: Denies: Hx Depression Past Surgical History: Reports: Hx Oral Surgery - wisdom teeth - Immunizations Immunizations up to date: Yes Hx Diphtheria, Pertussis, Tetanus Vaccination: Yes Review of Systems - Review of Systems Notes: My Normal Review Basic REVIEW OF SYSTEMS: CONSTITUTIONAL : Denies fever, chills, or sweats. Denies recent illness. EENT: Denies eye, ear, throat, or mouth pain or symptoms. Denies nasal or sinus congestion. CARDIOVASCULAR: Denies chest pain. RESPIRATORY: Denies cough, cold, or chest congestion. Denies shortness of breath, difficulty breathing, or wheezing. GASTROINTESTINAL: Upper abdominal pain. Some vomiting GENITOURINARY: Denies difficulty urinating, painful urination, burning, frequency, or blood in urine. FEMALE GENITOURINARY: Denies vaginal bleeding, abnormal or irregular periods. MUSCULOSKELETAL: Denies neck or back pain or joint pain or swelling. SKIN: Denies rash or skin lesions. NEUROLOGICAL: Denies altered mental status or loss of consciousness. Denies headache. Denies weakness or paralysis or loss of use of either side. Denies problems with gait or speech. Denies sensory or motor loss. ALL OTHER SYSTEMS REVIEWED AND NEGATIVE. Physical Exam - Vital signs Vitals: Temp Pulse Resp BP Pulse Ox 98.9 F 90 16 122/68 100 02/28/18 21:33 02/28/18 21:33 02/28/18 21:33 02/28/18 21:33 02/28/18 21:33 - Notes Notes: General Appearance: Well nourished, alert, cooperative, no acute distress, no obvious discomfort. Well appearing. Vitals: reviewed, See vital signs table. Head: no swelling or tenderness to the head Eyes: PERRL, EOMI, Conjuctiva clear Mouth: No decreasd moisture Throat: No tonsillar inflammation, No airway obstruction, No lymphadenopathy Lungs: No wheezing, No rales, No rhonci, No accessory muscle use, good air exchange bilaterally. Heart: Normal rate, Regular rythm, No murmur, no rub Abdomen: Normal BS, soft, No rigidity, mild right upper quadrant abdominal tenderness to palpation. Remainder of abdomen is nontender., No guarding, no rebound, Extremities: strength 5/5 in all extremities, good pulses in all extremities, no swelling or tenderness in the extremities, no edema. Skin: warm, dry, appropriate color, no rash Neuro: speech clear, oriented x 3, normal affect, responds appropriately to questions. Course - Re-evaluation Re-evalutation: 03/01/18 05:10 Patient may have early dyskinesia based on the fact that she has pain whenever she eats and gets nauseous. It is difficult to determine if she really had a fever being that she does not have a fever here and she has no leukocytosis and clinically she looks very well and is not ill-appearing at all. At this time I feel she is safe to be discharged home. I will give her some pain medication and have her follow-up with surgery clinic. Encouraged her return to ER immediately if she has recurrent worsening abdominal pain, fevers, vomiting, or she feels unwell. Patient agrees with plan and will be discharged home. Dictation of this chart was performed using voice recognition software; therefore, there may be some unintended grammatical errors. - Vital Signs Vital signs: Temp Pulse Resp BP Pulse Ox 98.2 F 88 15 118/89 H 100 03/01/18 03:06 03/01/18 03:06 03/01/18 03:06 03/01/18 03:06 03/01/18 03:06 - Laboratory Result Diagrams: 03/01/18 01:08 03/01/18 01:08 Laboratory results interpreted by me: 02/28/18 03/01/18 23:06 01:08 RDW 14.1 H Ur Leukocyte Esterase TRACE H Discharge - Discharge Clinical Impression: RUQ abdominal pain Condition: Good Disposition: HOME, SELF-CARE Additional Instructions: Please return to the ER immediately if you develop intractable pain, fevers, vomiting, or feel unwell. Please take the medication as prescribed with food to help with the pain. Please follow up closely with the surgery clinic (Dr. Espinal) for close reevaluation and to determine if you need further testing looking at your gallbladder. Prescriptions: Tramadol HCl 50 mg PO Q6 PRN #15 tablet PRN Reason: For Breakthrough Pain Referrals: DEJA ESPINAL MD [ACTIVE STAFF] - Follow up in 3-5 days
[2018-03-01] MEDS ORDERED: FENTANYL CITRATE INJ/PF 100 MCG/2 ML AMPUL IV ONE (00:40)
[2018-03-01 01:17] LABS: ABSOLUTE BASOPHILS # (AUTO) 0.1 10^3/uL (0.0-0.2); ABSOLUTE EOSINOPHILS # (AUTO) 0.1 10^3/uL (0.0-0.6); ABSOLUTE LYMPHOCYTES (AUTO) 1.9 10^3/uL (0.5-4.7); ABSOLUTE MONOCYTES (AUTO) 0.5 10^3/uL (0.1-1.4); ABSOLUTE NEUT (AUTO) 4.6 10^3/uL (1.7-8.2); BASOPHILS % (AUTO) 0.9 % (0-2); EOSINOPHILS % (AUTO) 1.6 % (0-6); HEMATOCRIT 38.9 % (36.0-47.0); HEMOGLOBIN 13.1 g/dL (12.0-15.5); LYMPHOCYTES % (AUTO) 26.6 % (13-45); MEAN CORPUSCULAR HGB CONC 33.7 g/dL (32.0-36.0); MEAN CORPUSCULAR VOLUME 86 fl (80-97); MONOCYTES % (AUTO) 7.1 % (3-13); PLATELET COUNT 216 10^3/uL (150-450); RED BLOOD COUNT 4.53 10^6/uL (3.72-5.28); RED CELL DISTRIBUTION WIDTH 14.1 % (11.5-14.0); SEGMENTED NEUTROPHILS % (AUTO) 63.8 % (42-78); TOTAL CELLS COUNTED % (AUTO) 100 %; WHITE BLOOD COUNT 7.2 10^3/uL (4.0-10.5)
[2018-03-01 01:33] LABS: ALANINE AMINOTRANSFERASE 38 U/L (9-52); ALBUMIN 4.5 g/dL (3.5-5.0); ALKALINE PHOSPHATASE 54 U/L (38-126); ANION GAP 11 (5-19); ASPARTATE AMINO TRANSFERASE 23 U/L (14-36); BILIRUBIN,DIRECT 0.2 mg/dL (0.0-0.4); BILIRUBIN,TOTAL 0.2 mg/dL (0.2-1.3); BLOOD UREA NITROGEN 13 mg/dL (7-20); CALCIUM 9.8 mg/dL (8.4-10.2); CARBON DIOXIDE 26 mmol/L (22-30); CHLORIDE 106 mmol/L (98-107); GLUCOSE 94 mg/dL (75-110); LIPASE 38.8 U/L (23-300); POTASSIUM 4.4 mmol/L (3.6-5.0); SODIUM 142.6 mmol/L (137-145); TOTAL PROTEIN 7.7 g/dL (6.3-8.2)
--- NOTE | 2018-03-01 02:33 | RADIOLOGY REPORT (SQ) ---
EXAM DESCRIPTION: US ABDOMEN DOPPLER LIMITED CLINICAL HISTORY: 22 years Female, RUQ abdominal pain Comparison: None. LIMITATIONS: None. FINDINGS: Gallbladder, negative sonographic Casas's test, liver, a 0.2-cm diameter common bile duct, no intrahepatic ductal dilation, 10-cm right kidney, partially obscured pancreas, visualized vasculature/abdominal aorta, and no significant ascites appear otherwise unremarkable. IMPRESSION: No acute findings.
[2018-03-01] MEDS ORDERED: KETOROLAC TROMETHAMINE INJ/PF 30 MG/1 ML SDV IV ONE (02:48)
[2018-03-01] MEDS ORDERED: TRAMADOL HCL 50 MG TABLET PO ONE (02:52)
[2018-03-01 03:07] VITALS: BP 118/89
== END 2018-03-01 03:05 | disposition home or self-care (01) ==
LOC: ER 21:01
DX: R10.11 Right upper quadrant pain (principal); R11.10 Vomiting, unspecified; R50.9 Fever, unspecified
CPT/HCPCS: 99284; 96361; 96374; 96375; 36415; 83690; 84703; 85025; 80053; 81001; 76705; 93976; J3010; J2405; J7030